=== PATIENT | male | born 1950 | race African-American/Black ===

== ENCOUNTER 2020-03-08 19:10 | Inpatient (IN) | payer MEDICARE, MEDICAID ==
[~2020-03-08] VITALS: Ht 175.3 cm; Wt 88.9 kg
[2020-03-08 18:59] VITALS: BP 154/70
[2020-03-08 19:08] LABS: BASOPHILS % (AUTO) 0.9 % (0.0-2.0); EOSINOPHILS % (AUTO) 1.9 % (0.0-3.0); HEMATOCRIT 25.5 % (42.0-52.0); LYMPHOCYTES % (AUTO) 18.4 % (20.0-45.0); MEAN CORPUSCULAR VOLUME 104 FL (80-99); MONOCYTES % (AUTO) 7.6 % (1.0-10.0); NEUTROPHILS % (AUTO) 71.1 % (45.0-75.0); PLATELET COUNT 305 K/UL (150-450); RED BLOOD COUNT 2.46 M/UL (4.70-6.10); RED CELL DISTRIBUTION WIDTH 13.1 % (11.6-14.8); WHITE BLOOD COUNT 9.1 K/UL (4.8-10.8)
[~2020-03-08 19:10] MED LIST: AMLODIPINE BESY10 MG ORAL; ATORVASTATIN CA40 MG ORAL; CALCIUM500 M3 PO; HEPARIN-D525000 UNI1 IV; HUMALOG100 UNIT/4 SUBQ; LABETALOL HCL200 MG ORAL; METOLAZONE5 MG PO; RENAGEL800 MG ORAL; bumex PO
[2020-03-08 19:11] LABS: ANION GAP 10 mmol/L (5-15); BLOOD UREA NITROGEN 44 mg/dL (7-18); CALCIUM 7.7 MG/DL (8.5-10.1); CARBON DIOXIDE 24 MMOL/L (21-32); CHLORIDE 104 MMOL/L (98-107); CREATININE 6.4 MG/DL (0.55-1.30); POTASSIUM 4.5 MMOL/L (3.5-5.1); SODIUM 138 MMOL/L (136-145)
[2020-03-08 19:16] LABS: ALANINE AMINOTRANSFERASE 22 U/L (12-78); ALBUMIN 1.9 G/DL (3.4-5.0); ALBUMIN/GLOBULIN RATIO 0.4 (1.0-2.7); ALKALINE PHOSPHATASE 81 U/L (46-116); ASPARTATE AMINO TRANSFERASE 22 U/L (15-37); BILIRUBIN,TOTAL 0.3 MG/DL (0.2-1.0)
--- NOTE | 2020-03-08 19:16 | Emergency Room Report ---
History of Present Illness General Chief Complaint: General Complaint Source: Patient, EMS, PMD - Dr. Tadeo Present Illness HPI Patient is a 69-year-old male past medical history of end-stage renal disease on dialysis who was brought in from his extended care facility by EMS due to missed dialysis. Apparently there is a transportation issue and patient has not been dialyzed in 5 days. He denies any chest pain or shortness of breath. He denies any fever or chills. He denies any abdominal pain, nausea or vomiting. Patient's primary doctor called in stating that the patient needs to be admitted for dialysis. COVID-19 Screening Contact w/high risk pt: No Experienced COVID-19 symptoms?: No COVID-19 Testing performed C PROGRAMMER: No Patient History Reviewed Nursing Documentation: PMH: Agreed; PSxH: Agreed Nursing Documentation-PM Past Medical History: No History, Except For Hx Hypertension: Yes Hx Diabetes: Yes Review of Systems All Other Systems: negative except mentioned in HPI Physical Exam Vital Signs Date Time Temp Pulse Resp B/P (MAP) Pulse Ox O2 Delivery O2 Flow Rate FiO2 03/08/20 18:29 98.2 88 20 145/78 (100) 98 Room Air Sp02 EP Interpretation: reviewed, normal General Appearance: no apparent distress, alert, GCS 15, non-toxic Head: normocephalic, atraumatic Eyes: bilateral eye normal inspection, bilateral eye PERRL ENT: hearing grossly normal, normal pharynx, no angioedema, normal voice Neck: full range of motion, supple/symm/no masses Respiratory: other Cardiovascular #1: regular rate, rhythm, no edema Gastrointestinal: normal bowel sounds, non tender, soft, non-distended, no guarding, no rebound Rectal: deferred Musculoskeletal: normal range of motion 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 Chest x-ray demonstrates increased pulmonary vasculature and on physical exam patient has bibasilar crackles. Patient will be admitted for dialysis. Laboratory Tests Test 03/08/20 18:58 White Blood Count 9.1 K/UL (4.8-10.8) Red Blood Count 2.46 M/UL (4.70-6.10) L Hemoglobin 8.0 G/DL (14.2-18.0) L Hematocrit 25.5 % (42.0-52.0) L Mean Corpuscular Volume 104 FL (80-99) H Mean Corpuscular Hemoglobin 32.3 PG (27.0-31.0) H Mean Corpuscular Hemoglobin Concent 31.2 G/DL (32.0-36.0) L Red Cell Distribution Width 13.1 % (11.6-14.8) Platelet Count 305 K/UL (150-450) Mean Platelet Volume 4.9 FL (6.5-10.1) L Neutrophils (%) (Auto) 71.1 % (45.0-75.0) Lymphocytes (%) (Auto) 18.4 % (20.0-45.0) L Monocytes (%) (Auto) 7.6 % (1.0-10.0) Eosinophils (%) (Auto) 1.9 % (0.0-3.0) Basophils (%) (Auto) 0.9 % (0.0-2.0) Prothrombin Time 10.6 SEC (9.30-11.50) Prothrombin Time INR 1.0 (0.9-1.1) Activated Partial Thromboplast Time 29 SEC (23-33) Sodium Level 138 MMOL/L (136-145) Potassium Level 4.5 MMOL/L (3.5-5.1) Chloride Level 104 MMOL/L (98-107) Carbon Dioxide Level 24 MMOL/L (21-32) Anion Gap 10 mmol/L (5-15) Blood Urea Nitrogen 44 mg/dL (7-18) H Creatinine 6.4 MG/DL (0.55-1.30) H Estimated Glomerular Filtration Rate 10.7 mL/min (>60) Glucose Level 250 MG/DL (74-106) H Calcium Level 7.7 MG/DL (8.5-10.1) L Magnesium Level 2.1 MG/DL (1.8-2.4) Total Bilirubin 0.3 MG/DL (0.2-1.0) Aspartate Amino Transferase (AST) 22 U/L (15-37) Alanine Aminotransferase (ALT) 22 U/L (12-78) Alkaline Phosphatase 81 U/L (46-116) Total Protein 6.7 G/DL (6.4-8.2) Albumin 1.9 G/DL (3.4-5.0) L Globulin 4.8 g/dL Albumin/Globulin Ratio 0.4 (1.0-2.7) L Microbiology Date/Time Source Procedure Growth Status 03/08/20 18:58 Nasopharynx SARS-CoV-2 RdRp Gene Assay - Final Complete Rhythm Strip Diag. Results Rhythm Strip Time: 19:15 EP Interpretation: yes - Kathy Meza MD Rate: 79 bpm Rhythm: NSR, no PVC's, no ectopy Chest X-Ray Diagnostic Results Chest X-Ray Diagnostic Results : Chest X-Ray Ordered: Yes # of Views/Limited/Complete: 1 View Indication: Other - missed dialysis EP Interpretation: Yes Interpretation: no consolidation, no pneumothorax, other - Increased pulmonary vasculature Impression: Other - Mild CHF Electronically Signed by: Kathy Meza MD Last Vital Signs Date Time Temp Pulse Resp B/P (MAP) Pulse Ox O2 Delivery O2 Flow Rate FiO2 03/08/20 18:59 98.2 82 19 154/70 96 Room Air Disposition: PLACE IN OBSERVATION - Medical FLoor Condition: Critical Physician Consult: Dr. Shwetha MD to admit. Currently at bedside. 8pm Kathy Meza M.D. Mar 08, 2020 19:16
[2020-03-08 21:14] VITALS: BP 153/65
[2020-03-08 22:15] VITALS: BP 158/68
--- NOTE | 2020-03-08 23:43 | History & Physical ---
History and Physical History & Physicial Pj Hernandez MD Mar 08, 2020 23:43
[2020-03-09] VITALS: BP 149/72
--- NOTE | 2020-03-09 02:59 | History and Physical Report ---
DATE OF ADMISSION: 03/08/2020 CHIEF COMPLAINT: Inability to get dialysis. HISTORY OF PRESENT ILLNESS: This is a 69-year-old gentleman with past medical history significant for end-stage renal disease on hemodialysis, history of hypertension, diabetes type 2, anemia of chronic kidney disease who presented to the hospital from [facility] after was noted patient was unable to get dialysis today. Patient's last dialysis was 5 days ago and had a transportation problem for dialysis. He denies any chest pain or shortness of breath. Denies any fever, chills, nausea, vomiting, abdominal pain, or diarrhea. Patient has no history of COVID exposure or upper respiratory symptoms. Shortly after initial evaluation in the emergency department, patient was admitted to the hospital with end-stage renal disease on hemodialysis, required dialysis done quickly. PAST MEDICAL HISTORY/PAST SURGICAL HISTORY: As above. History of hypertension, diabetes type 2, end-stage renal disease on hemodialysis, anemia of chronic kidney disease. MEDICATIONS AT HOME: Please refer to medication reconciliation. ALLERGIES: No known drug allergies. SOCIAL HISTORY: Patient is a retirement resident. No smoking, alcohol, or drugs at this time. 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 FAMILY HISTORY: Significant for diabetes and high blood pressure runs in parents. REVIEW OF SYSTEMS: Mostly as above. Denies any dysuria, frequency, or hematuria. Denies any hemoptysis or hematochezia. Denies any bright red blood per rectum. Denies any fever, chills, or loss of consciousness. Complained about weakness of lower extremities. PHYSICAL EXAMINATION: VITAL SIGNS: On admission, temperature 98.9, pulse of 88, respirations 20, blood pressure 145/78. GENERAL: Patient is awake, responsive. No acute distress. HEAD AND NECK: Pupils are reactive to light. Extraocular movements intact. Neck was supple. No JVD. LUNGS: Good air entry. No wheezing or rales. Decreased air in bases. HEART: S1, S2. Distant heart sounds. No murmur or gallop. Patient's right chest wall has PermCath. No sign of infection. No discharges. ABDOMEN: Soft, nondistended, nontender. Mildly obese. EXTREMITIES: No cyanosis, clubbing, or edema. Patient was noted to have decreased pulses in the lower extremities as well as patient has venous stasis and wrinkled skin. NEUROLOGIC: Cranial nerves II through to XII grossly intact. Patient is moving all extremities. Gait was not assessed due to patient's status. RECTAL/GENITOURINARY: Refused and deferred. PSYCHIATRIC: Mood and affect is intact. LABORATORY DATA: On admission from the emergency department, WBC of 9.1, hemoglobin 8.0, hematocrit 25, platelets is 305. Sodium 138, potassium 4.5, chloride 104, bicarb 24, BUN 44, creatinine 6.4, glucose is 250. GFR is 10.7. Hemoglobin A1c 6.7. Calcium is 7.7. AST of 22, ALT of 22. Albumin is 1.9. PT 10, INR 1.0, PTT of 29. COVID rapid test is negative. ASSESSMENT: 1. End-stage renal disease, on hemodialysis. 2. Fluid overload and inability to get dialyze. 3. Diabetes type 2. 4. Hypertension. 5. Anemia of chronic kidney disease. PLAN: Admit patient to medical floor. We will follow up with the laboratory in the morning. Consider Dr. Kevyn Vásquez consultation in the morning for dialysis order. Code status is Full code. DVT prophylaxis, heparin subcutaneous. We will follow up with blood glucose level closely and resume retirement medication. Pj Hernandez M.D. DR: AINSLEY JOB#: [id number] CC:
[2020-03-09] MEDS: NovoLOG Insulin Flexpen SUBQ SCH ×4 (06:56→21:19)
[2020-03-09] MEDS: Heparin 5000 units/ml inj SUBQ SCH ×3 (06:57→21:11)
[2020-03-09] MEDS ORDERED: Bumetanide 1mg tab ORAL SCH (08:00)
[2020-03-09 08:44] LABS: BASOPHILS % (AUTO) 0.7 % (0.0-2.0); EOSINOPHILS % (AUTO) 2.2 % (0.0-3.0); HEMATOCRIT 25.6 % (42.0-52.0); LYMPHOCYTES % (AUTO) 21.4 % (20.0-45.0); MEAN CORPUSCULAR VOLUME 103 FL (80-99); MONOCYTES % (AUTO) 7.1 % (1.0-10.0); NEUTROPHILS % (AUTO) 68.6 % (45.0-75.0); PLATELET COUNT 316 K/UL (150-450); RED CELL DISTRIBUTION WIDTH 12.3 % (11.6-14.8); WHITE BLOOD COUNT 8.8 K/UL (4.8-10.8)
[2020-03-09 08:55] VITALS: BP 143/80
[2020-03-09] MEDS: Aspirin Baby 81mg ORAL SCH (09:01)
[2020-03-09] MEDS: Losartan 25mg tab ORAL SCH (09:02)
[2020-03-09] MEDS: Nephrovite tab (Rena-Vite) ORAL SCH (09:02)
[2020-03-09 09:08] LABS: PHOSPHORUS 4.3 MG/DL (2.5-4.9)
[2020-03-09 09:22] LABS: ANION GAP 11 mmol/L (5-15); BLOOD UREA NITROGEN 49 mg/dL (7-18); CALCIUM 7.8 MG/DL (8.5-10.1); CARBON DIOXIDE 22 MMOL/L (21-32); CHLORIDE 104 MMOL/L (98-107); CREATININE 6.4 MG/DL (0.55-1.30); POTASSIUM 4.2 MMOL/L (3.5-5.1); SODIUM 137 MMOL/L (136-145)
[2020-03-09 09:25] LABS: % IRON SATURATION 23 % (15-50); IRON 32 ug/dL (50-175); TOTAL IRON BINDING CAPACITY 139 ug/dL (250-450)
[2020-03-09 09:36] LABS: ALANINE AMINOTRANSFERASE 26 U/L (12-78); ALBUMIN 1.7 G/DL (3.4-5.0); ALBUMIN/GLOBULIN RATIO 0.4 (1.0-2.7); ALKALINE PHOSPHATASE 61 U/L (46-116); BILIRUBIN,TOTAL 0.2 MG/DL (0.2-1.0); FERRITIN 413 NG/ML (8-388)
[2020-03-09 09:44] LABS: ASPARTATE AMINO TRANSFERASE 21 U/L (15-37)
[2020-03-09 11:55] VITALS: BP 140/81
--- NOTE | 2020-03-09 12:14 | Consultation ---
Consult Note Consult Note I am asked to evaluate this patient at the request of Dr. singh for dialysis management. Patient seen in room 310. Discussed with RN. Patient is a 69-year-old male past medical history of end-stage renal disease on dialysis who was brought in from his extended care facility by EMS due to missed dialysis. Apparently there is a transportation issue and patient has not been dialyzed in 5 days. He denies any chest pain or shortness of breath. He denies any fever or chills. He denies any abdominal pain, nausea or vomiting. Patient's primary doctor called in stating that the patient needs to be admitted for dialysis. COVID-19 Screening Contact w/high risk pt: No Experienced COVID-19 symptoms?: No COVID-19 Testing performed BOBBIN WINDER TENDER: No Past Medical History: No History, Except For: End-stage renal disease Hx Hypertension: Yes Hx Diabetes: Yes Patient interviewed and examined. Laboratory data reviewed. VITAL SIGNS: On admission, temperature 98.9, pulse of 88, respirations 20, blood pressure 145/78. Patient is awake, responsive. No acute distress. HEAD AND NECK: Pupils are reactive to light. Extraocular movements intact. Neck was supple. No JVD. LUNGS: Good air entry. No wheezing or rales. Decreased air in bases. HEART: S1, S2. Distant heart sounds. No murmur or gallop. Patient's right chest wall has PermCath. No sign of infection. No discharges. ABDOMEN: Soft, nondistended, nontender. Mildly obese. EXTREMITIES: No cyanosis, clubbing, or edema. Patient was noted to have decreased pulses in the lower extremities as well as patient has venous stasis and wrinkled skin. NEUROLOGIC: Cranial nerves II through to XII grossly intact. Patient is moving all extremities. Gait was not assessed due to patient's status. . Assessment/Plan End-stage renal disease Anemia of chronic kidney disease Diabetes mellitus Volume overload Hemodialysis today Keep the blood pressure and blood sugar in check Flomax nightly Parameters for blood pressure medications Epogen subcu for anemia Per orders Kevyn Vásquez MD Mar 09, 2020 12:14
--- NOTE | 2020-03-09 12:55 | Consultation ---
History of Present Illness General Date patient seen: Mar 09, 2020 Chief Complaint: General Complaint Reason for Consultation: inpatient management Present Illness HPI 69 year old male with hx of ESRF on HD , dm, HTH, DM, [place] [facility] [place] cuased by lack of HD for the past 5 days. Pt is admitted for further treatment. Allergies: Coded Allergies: No Known Allergies (Unverified , 03/08/20) Medication History Scheduled Amlodipine Besylate* (Amlodipine Besylate*), 10 MG ORAL DAILY, (Reported) Atorvastatin Calcium* (Atorvastatin Calcium*), 80 MG ORAL BEDTIME, (Reported) Labetalol Hcl* (Normodyne*), 200 MG ORAL EVERY 12 HOURS, (Reported) Sevelamer Hcl (Renagel), 800 MG ORAL THREE TIMES A DAY, (Reported) [bumex], 2 MG PO BID, (Reported) Miscellaneous Medications Calcium Carbonate (Calcium), 500 MG PO, (Reported) Heparin Sod/Dextrose* (Heparin-D5w 25,000 Unit/500 Ml*), 5,000 UNIT IV, ( Reported) Insulin Lispro (Humalog), 200 SUBQ, (Reported) Metolazone (Metolazone), 5 MG PO, (Reported) Patient History Healthcare decision maker Resuscitation status Advanced Directive on File Past Medical/Surgical History Past Medical/Surgical History: (1) History of diabetes mellitus (2) History of hypertension (3) ESRF (end stage renal failure) (4) Lack of access to transportation Review of Systems All Other Systems: negative except mentioned in HPI Physical Exam General Appearance: WD/WN, no apparent distress Lines, tubes and drains: peripheral, central line HEENT: normocephalic, atraumatic Neck: non-tender, normal alignment Respiratory/Chest: chest wall non-tender, lungs clear Breasts: no masses Cardiovascular/Chest: normal peripheral pulses, normal rate Abdomen: normal bowel sounds Extremities: normal range of motion Last 24 Hour Vital Signs Date Time Temp Pulse Resp B/P (MAP) Pulse Ox O2 Delivery O2 Flow Rate FiO2 03/09/20 11:55 98.2 77 18 140/81 (100) 98 03/09/20 09:02 143/80 03/09/20 09:02 84 143/80 03/09/20 08:55 98.2 84 20 143/80 (101) 98 03/09/20 00:00 98.2 82 20 149/72 (97) 97 03/08/20 22:59 Room Air 03/08/20 22:15 98.3 92 18 158/68 (98) 98 03/08/20 22:10 98.2 91 26 153/65 99 Room Air 03/08/20 21:14 98.2 91 26 153/65 99 Room Air 03/08/20 18:59 98.2 82 19 154/70 96 Room Air 03/08/20 18:59 81 20 Room Air 03/08/20 18:29 98.2 88 20 145/78 (100) 98 Room Air Laboratory Tests Test 03/08/20 18:58 03/09/20 06:51 03/09/20 07:55 03/09/20 11:51 White Blood Count 9.1 K/UL (4.8-10.8) 8.8 K/UL (4.8-10.8) Red Blood Count 2.46 M/UL (4.70-6.10) L 2.50 M/UL (4.70-6.10) L Hemoglobin 8.0 G/DL (14.2-18.0) L 8.0 G/DL (14.2-18.0) L Hematocrit 25.5 % (42.0-52.0) L 25.6 % (42.0-52.0) L Mean Corpuscular Volume 104 FL (80-99) H 103 FL (80-99) H Mean Corpuscular Hemoglobin 32.3 PG (27.0-31.0) H 32.1 PG (27.0-31.0) H Mean Corpuscular Hemoglobin Concent 31.2 G/DL (32.0-36.0) L 31.3 G/DL (32.0-36.0) L Red Cell Distribution Width 13.1 % (11.6-14.8) 12.3 % (11.6-14.8) Platelet Count 305 K/UL (150-450) 316 K/UL (150-450) Mean Platelet Volume 4.9 FL (6.5-10.1) L 5.1 FL (6.5-10.1) L Neutrophils (%) (Auto) 71.1 % (45.0-75.0) 68.6 % (45.0-75.0) Lymphocytes (%) (Auto) 18.4 % (20.0-45.0) L 21.4 % (20.0-45.0) Monocytes (%) (Auto) 7.6 % (1.0-10.0) 7.1 % (1.0-10.0) Eosinophils (%) (Auto) 1.9 % (0.0-3.0) 2.2 % (0.0-3.0) Basophils (%) (Auto) 0.9 % (0.0-2.0) 0.7 % (0.0-2.0) Prothrombin Time 10.6 SEC (9.30-11.50) Prothromb Time International Ratio 1.0 (0.9-1.1) Activated Partial Thromboplast Time 29 SEC (23-33) Sodium Level 138 MMOL/L (136-145) 137 MMOL/L (136-145) Potassium Level 4.5 MMOL/L (3.5-5.1) 4.2 MMOL/L (3.5-5.1) Chloride Level 104 MMOL/L (98-107) 104 MMOL/L (98-107) Carbon Dioxide Level 24 MMOL/L (21-32) 22 MMOL/L (21-32) Anion Gap 10 mmol/L (5-15) 11 mmol/L (5-15) Blood Urea Nitrogen 44 mg/dL (7-18) H 49 mg/dL (7-18) H Creatinine 6.4 MG/DL (0.55-1.30) H 6.4 MG/DL (0.55-1.30) H Estimat Glomerular Filtration Rate 10.7 mL/min (>60) 10.7 mL/min (>60) Glucose Level 250 MG/DL (74-106) H 185 MG/DL (74-106) H Hemoglobin A1c 6.7 % (4.3-6.0) H Calcium Level 7.7 MG/DL (8.5-10.1) L 7.8 MG/DL (8.5-10.1) L Magnesium Level 2.1 MG/DL (1.8-2.4) 2.0 MG/DL (1.8-2.4) Total Bilirubin 0.3 MG/DL (0.2-1.0) 0.2 MG/DL (0.2-1.0) Aspartate Amino Transf (AST/SGOT) 22 U/L (15-37) 21 U/L (15-37) Alanine Aminotransferase (ALT/SGPT) 22 U/L (12-78) 26 U/L (12-78) Alkaline Phosphatase 81 U/L (46-116) 61 U/L (46-116) Total Protein 6.7 G/DL (6.4-8.2) 6.3 G/DL (6.4-8.2) L Albumin 1.9 G/DL (3.4-5.0) L 1.7 G/DL (3.4-5.0) L Globulin 4.8 g/dL 4.6 g/dL Albumin/Globulin Ratio 0.4 (1.0-2.7) L 0.4 (1.0-2.7) L POC Whole Blood Glucose 183 MG/DL (74-106) H 136 MG/DL (74-106) H Phosphorus Level 4.3 MG/DL (2.5-4.9) Iron Level 32 ug/dL (50-175) L Total Iron Binding Capacity 139 ug/dL (250-450) L Percent Iron Saturation 23 % (15-50) Unsaturated Iron Binding 107 ug/dL (112-346) L Ferritin 413 NG/ML (8-388) H Vitamin B12 Level 791 PG/ML (193-986) Folate 8.7 NG/ML (8.6-58.9) Microbiology Date/Time Source Procedure Growth Status 03/08/20 18:58 Nasopharynx SARS-CoV-2 RdRp Gene Assay - Final Complete Height (Feet): 5 Height (Inches): 9.00 Weight (Pounds): 200 Medications Current Medications Medications (Trade) Dose Ordered Sig/Analilia Route PRN Reason Start Time Stop Time Status Last Admin Dose Admin Amlodipine Besylate (Norvasc) 10 mg DAILY ORAL 03/09/20 09:00 04/08/20 08:59 03/09/20 09:02 Artificial Tears (Akwa-Tears) 1 drop THREE TIMES A DAY BOTH EYES 03/09/20 09:00 04/08/20 08:59 03/09/20 09:03 Aspirin (ASA) 81 mg DAILY ORAL 03/09/20 09:00 04/23/20 08:59 03/09/20 09:01 Atorvastatin Calcium (Lipitor) 80 mg BEDTIME ORAL 03/09/20 21:00 06/07/20 20:59 Dextrose (Dextrose 50%) 25 ml Q30M PRN IV Hypoglycemia 03/08/20 23:00 06/06/20 22:59 Dextrose (Dextrose 50%) 50 ml Q30M PRN IV Hypoglycemia 03/08/20 23:00 06/06/20 22:59 Docusate Sodium (Colace) 100 mg THREE TIMES A DAY ORAL 03/09/20 13:00 04/08/20 12:59 Epoetin Dragan (Epoetin Dragan(ESRD on dialysis)) 10,000 unit FRI- SUBQ 03/10/20 21:00 06/08/20 20:59 Ergocalciferol (Drisdol) 50,000 intlu ONCE A WEEK ORAL 03/12/20 09:00 04/11/20 08:59 Ferrous Sulfate (Feosol) 325 mg THREE TIMES A DAY ORAL 03/09/20 09:00 06/07/20 08:59 03/09/20 09:02 Heparin Sodium (Porcine) (Heparin 5000 units/ml) 5,000 units EVERY 8 HOURS SUBQ 03/09/20 06:00 04/23/20 05:59 03/09/20 06:57 Insulin Aspart (NovoLOG) BEFORE MEALS AND HS SUBQ 03/09/20 06:30 06/07/20 06:29 03/09/20 06:56 Losartan Potassium (Cozaar) 25 mg DAILY ORAL 03/09/20 09:00 04/08/20 08:59 03/09/20 09:02 Pantoprazole (Protonix) 40 mg EVERY 12 HOURS ORAL 03/09/20 21:00 04/08/20 20:59 Sevelamer Carbonate (Renvela) 800 mg THREE TIMES A DAY ORAL 03/09/20 09:00 06/07/20 08:59 03/09/20 09:02 Tamsulosin HCl (Flomax) 0.4 mg BEDTIME ORAL 03/09/20 21:00 04/08/20 20:59 Vitamin B Complex/ Vit C/Folic Acid (Nephrovite) 1 tab DAILY ORAL 03/09/20 09:00 04/08/20 08:59 03/09/20 09:02 Assessment/Plan Problem List: (1) Fluid overload ICD Codes: E87.70 - Fluid overload, unspecified SNOMED: 45795865 (2) Missed dialysis SNOMED: 737721209 (3) Lack of access to transportation ICD Codes: Z91.89 - Other specified personal risk factors, not elsewhere classified SNOMED: 598224583 (4) ESRF (end stage renal failure) ICD Codes: N18.6 - End stage renal disease SNOMED: 09248158 (5) History of hypertension ICD Codes: Z86.79 - Personal history of other diseases of the circulatory system SNOMED: 292875791 (6) History of diabetes mellitus ICD Codes: Z86.39 - Personal history of other endocrine, nutritional and metabolic disease SNOMED: 942265401 Assessment/Plan: HD today social service consult symptomatic treatment sliding scale diabetic diet monitor Bp Gabriel Ceja MD Mar 09, 2020 12:55
[2020-03-09] MEDS: Docusate 100mg cap ORAL SCH ×2 (13:00→17:07)
--- NOTE | 2020-03-09 13:15 | Diagnostic Imaging Report ---
Indication: Chest pain Technique: One view of the chest Comparison: none Findings: Heart size is normal. There is an opacity at the right lung base. Uncertain as to whether this represents infiltrate or an overlapping shadow. There is blunting of the left costophrenic sulcus. The upper lungs are clear. There is a tunneled dialysis catheter Impression: Possible right basilar infiltrate Small left pleural effusion
[2020-03-09 16:00] VITALS: BP 138/78
--- NOTE | 2020-03-09 19:36 | Internal Med Progress Note ---
Subjective Date of Service: Mar 09, 2020 Physician Name Ted Worthington Attending Physician Pj Hernandez MD Current Medications Medications (Trade) Dose Ordered Sig/Analilia Route PRN Reason Start Time Stop Time Status Last Admin Dose Admin Amlodipine Besylate (Norvasc) 10 mg DAILY ORAL 03/09/20 09:00 04/08/20 08:59 03/09/20 09:02 Artificial Tears (Akwa-Tears) 1 drop THREE TIMES A DAY BOTH EYES 03/09/20 09:00 04/08/20 08:59 03/09/20 17:06 Aspirin (ASA) 81 mg DAILY ORAL 03/09/20 09:00 04/23/20 08:59 03/09/20 09:01 Atorvastatin Calcium (Lipitor) 80 mg BEDTIME ORAL 03/09/20 21:00 06/07/20 20:59 Dextrose (Dextrose 50%) 25 ml Q30M PRN IV Hypoglycemia 03/08/20 23:00 06/06/20 22:59 Dextrose (Dextrose 50%) 50 ml Q30M PRN IV Hypoglycemia 03/08/20 23:00 06/06/20 22:59 Docusate Sodium (Colace) 100 mg THREE TIMES A DAY ORAL 03/09/20 13:00 04/08/20 12:59 Epoetin Dragan (Epoetin Dragan(ESRD on dialysis)) 10,000 unit FRI-FRI-FRI SUBQ 03/10/20 21:00 06/08/20 20:59 Ergocalciferol (Drisdol) 50,000 intlu ONCE A WEEK ORAL 03/12/20 09:00 04/11/20 08:59 Ferrous Sulfate (Feosol) 325 mg THREE TIMES A DAY ORAL 03/09/20 09:00 06/07/20 08:59 03/09/20 17:07 Heparin Sodium (Porcine) (Heparin 5000 units/ml) 5,000 units EVERY 8 HOURS SUBQ 03/09/20 06:00 04/23/20 05:59 03/09/20 13:43 Insulin Aspart (NovoLOG) BEFORE MEALS AND HS SUBQ 03/09/20 06:30 06/07/20 06:29 03/09/20 17:06 Losartan Potassium (Cozaar) 25 mg DAILY ORAL 03/09/20 09:00 04/08/20 08:59 03/09/20 09:02 Pantoprazole (Protonix) 40 mg EVERY 12 HOURS ORAL 03/09/20 21:00 04/08/20 20:59 Sevelamer Carbonate (Renvela) 800 mg THREE TIMES A DAY ORAL 03/09/20 09:00 06/07/20 08:59 03/09/20 17:07 Tamsulosin HCl (Flomax) 0.4 mg BEDTIME ORAL 03/09/20 21:00 04/08/20 20:59 Vitamin B Complex/ Vit C/Folic Acid (Nephrovite) 1 tab DAILY ORAL 03/09/20 09:00 04/08/20 08:59 03/09/20 09:02 Allergies: Coded Allergies: No Known Allergies (Unverified , 03/08/20) ROS Limited/Unobtainable: No Constitutional: Reports: no symptoms HEENT: Reports: no symptoms Cardiovascular: Reports: no symptoms Respiratory: Reports: no symptoms Gastrointestinal/Abdominal: Reports: no symptoms Genitourinary: Reports: no symptoms Neurologic/Psychiatric: Reports: no symptoms Subjective 69 YO M with history of end stage renal failure, admitted for missed dialysis. Cover for Int Nic-Dr Hernandez Objective Last Vital Signs Date Time Temp Pulse Resp B/P (MAP) Pulse Ox O2 Delivery O2 Flow Rate FiO2 03/09/20 16:00 98.3 86 18 138/78 (98) 100 03/09/20 09:00 Room Air Laboratory Tests Test 03/09/20 06:51 03/09/20 07:55 03/09/20 11:51 POC Whole Blood Glucose 183 MG/DL (74-106) H 136 MG/DL (74-106) H White Blood Count 8.8 K/UL (4.8-10.8) Red Blood Count 2.50 M/UL (4.70-6.10) L Hemoglobin 8.0 G/DL (14.2-18.0) L Hematocrit 25.6 % (42.0-52.0) L Mean Corpuscular Volume 103 FL (80-99) H Mean Corpuscular Hemoglobin 32.1 PG (27.0-31.0) H Mean Corpuscular Hemoglobin Concent 31.3 G/DL (32.0-36.0) L Red Cell Distribution Width 12.3 % (11.6-14.8) Platelet Count 316 K/UL (150-450) Mean Platelet Volume 5.1 FL (6.5-10.1) L Neutrophils (%) (Auto) 68.6 % (45.0-75.0) Lymphocytes (%) (Auto) 21.4 % (20.0-45.0) Monocytes (%) (Auto) 7.1 % (1.0-10.0) Eosinophils (%) (Auto) 2.2 % (0.0-3.0) Basophils (%) (Auto) 0.7 % (0.0-2.0) Sodium Level 137 MMOL/L (136-145) Potassium Level 4.2 MMOL/L (3.5-5.1) Chloride Level 104 MMOL/L (98-107) Carbon Dioxide Level 22 MMOL/L (21-32) Anion Gap 11 mmol/L (5-15) Blood Urea Nitrogen 49 mg/dL (7-18) H Creatinine 6.4 MG/DL (0.55-1.30) H Estimat Glomerular Filtration Rate 10.7 mL/min (>60) Glucose Level 185 MG/DL (74-106) H Calcium Level 7.8 MG/DL (8.5-10.1) L Phosphorus Level 4.3 MG/DL (2.5-4.9) Magnesium Level 2.0 MG/DL (1.8-2.4) Iron Level 32 ug/dL (50-175) L Total Iron Binding Capacity 139 ug/dL (250-450) L Percent Iron Saturation 23 % (15-50) Unsaturated Iron Binding 107 ug/dL (112-346) L Ferritin 413 NG/ML (8-388) H Total Bilirubin 0.2 MG/DL (0.2-1.0) Aspartate Amino Transf (AST/SGOT) 21 U/L (15-37) Alanine Aminotransferase (ALT/SGPT) 26 U/L (12-78) Alkaline Phosphatase 61 U/L (46-116) Total Protein 6.3 G/DL (6.4-8.2) L Albumin 1.7 G/DL (3.4-5.0) L Globulin 4.6 g/dL Albumin/Globulin Ratio 0.4 (1.0-2.7) L Vitamin B12 Level 791 PG/ML (193-986) Folate 8.7 NG/ML (8.6-58.9) Microbiology Date/Time Source Procedure Growth Status 03/08/20 18:58 Nasopharynx SARS-CoV-2 RdRp Gene Assay - Final Complete Objective PHYSICAL EXAMINATION: GENERAL: Patient is awake, responsive. No acute distress. HEAD AND NECK: Pupils are reactive to light. Extraocular movements intact. Neck was supple. No JVD. LUNGS: Good air entry. No wheezing or rales. Decreased air in bases. HEART: S1, S2. Distant heart sounds. No murmur or gallop. Patient's right chest wall has PermCath. No sign of infection. No discharges. ABDOMEN: Soft, nondistended, nontender. Mildly obese. EXTREMITIES: No cyanosis, clubbing, or edema. Patient was noted to have decreased pulses in the lower extremities as well as patient has venous stasis and wrinkled skin. NEUROLOGIC: Cranial nerves II through to XII grossly intact. Patient is moving all extremities. Gait was not assessed due to patient's status. RECTAL/GENITOURINARY: Refused and deferred. PSYCHIATRIC: Mood and affect is intact. Assessment/Plan Assessment/Plan ASSESSMENT: 1. End-stage renal disease, on hemodialysis. 2. Fluid overload and inability to get dialyze. 3. Diabetes type 2. 4. Hypertension. 5. Anemia of chronic kidney disease. PLAN: 1. Admit patient to medical floor. 2. Dr. Kevyn Vásquez = nephrology consultation; hemodialysis 03/09/20 3. Code status is Full code. 4. DVT prophylaxis=heparin subcutaneous. Ted Worthington MD Mar 09, 2020 19:36
[2020-03-09 20:00] VITALS: BP 140/80
[2020-03-09] MEDS: Atorvastatin 80mg tab ORAL SCH (21:09)
[2020-03-09] MEDS: Tamsulosin 0.4mg cap ORAL SCH (21:10)
[2020-03-10] VITALS: BP 149/80
[2020-03-10 04:00] VITALS: BP 143/73
[2020-03-10] MEDS: Heparin 5000 units/ml inj SUBQ SCH ×3 (05:37→21:13)
[2020-03-10] MEDS: NovoLOG Insulin Flexpen SUBQ SCH ×4 (05:37→21:23)
[2020-03-10 08:00] VITALS: BP 132/77
[2020-03-10] MEDS: Docusate 100mg cap ORAL SCH ×3 (08:23→17:02)
[2020-03-10] MEDS: Nephrovite tab (Rena-Vite) ORAL SCH (08:23)
[2020-03-10] MEDS: Aspirin Baby 81mg ORAL SCH (08:23)
[2020-03-10] MEDS: Losartan 25mg tab ORAL SCH (08:24)
--- NOTE | 2020-03-10 10:44 | Nephrology Progress Note ---
Assessment/Plan Problem List: (1) ESRD (end stage renal disease) on dialysis (2) Missed dialysis (3) History of hypertension (4) Fluid overload (5) Anemia in chronic kidney disease (CKD) Assessment End-stage renal disease Anemia of chronic kidney disease Diabetes mellitus Volume overload Plan March 10: Hemodialysis today, since dialysis was not done yesterday due to mechanical reasons with the dialysis vendor. Discussed with RN. Today's lab pending will be drawn prior to dialysis by dialysis nurse. Keep the blood pressure and blood sugar in check Flomax nightly Parameters for blood pressure medications Epogen subcu for anemia Per orders Subjective ROS Limited/Unobtainable: No Constitutional: Reports: malaise Objective Objective Last 24 Hour Vital Signs Date Time Temp Pulse Resp B/P (MAP) Pulse Ox O2 Delivery O2 Flow Rate FiO2 03/10/20 09:00 Room Air 03/10/20 08:00 98.0 100 18 132/77 (95) 97 03/10/20 04:00 98.0 82 18 143/73 (96) 98 03/10/20 00:00 97.5 82 18 149/80 (103) 98 03/09/20 21:00 Room Air 03/09/20 20:00 98.5 86 18 140/80 (100) 100 03/09/20 16:00 98.3 86 18 138/78 (98) 100 03/09/20 11:55 98.2 77 18 140/81 (100) 98 Intake and Output 03/09/20 03/10/20 19:00 07:00 Intake Total 500 ml 240 ml Balance 500 ml 240 ml Intake Oral 500 ml 240 ml # Voids 1 # Bowel Movements 1 1 Patient refused blood draw today laboratory Tests 03/09/20 11:51: POC Whole Blood Glucose 136H 03/09/20 17:03: POC Whole Blood Glucose 252H 03/09/20 21:17: POC Whole Blood Glucose [Pending] 03/10/20 05:07: POC Whole Blood Glucose 155H Height (Feet): 5 Height (Inches): 9.00 Weight (Pounds): 203 General Appearance: no apparent distress Cardiovascular: tachycardia Respiratory/Chest: decreased breath sounds Abdomen: soft Kevyn Vásquez MD Mar 10, 2020 10:44
[2020-03-10 12:00] VITALS: BP 135/70
--- NOTE | 2020-03-10 14:20 | Pulmonology Progress Note ---
Subjective ROS Limited/Unobtainable: No Constitutional: Reports: no symptoms HEENT: Repors: no symptoms Allergies: Coded Allergies: No Known Allergies (Unverified , 03/08/20) Objective Last 24 Hour Vital Signs Date Time Temp Pulse Resp B/P (MAP) Pulse Ox O2 Delivery O2 Flow Rate FiO2 03/10/20 09:00 Room Air 03/10/20 08:00 98.0 100 18 132/77 (95) 97 03/10/20 04:00 98.0 82 18 143/73 (96) 98 03/10/20 00:00 97.5 82 18 149/80 (103) 98 03/09/20 21:00 Room Air 03/09/20 20:00 98.5 86 18 140/80 (100) 100 03/09/20 16:00 98.3 86 18 138/78 (98) 100 Intake and Output 03/09/20 03/10/20 19:00 07:00 Intake Total 500 ml 240 ml Balance 500 ml 240 ml Intake Oral 500 ml 240 ml # Voids 1 # Bowel Movements 1 1 General Appearance: WD/WN HEENT: normocephalic, anicteric Respiratory: chest wall non-tender, lungs clear Cardiovascular: normal peripheral pulses, normal rate, regular rhythm Abdomen: normal bowel sounds, soft, non tender Genitourinary: normal external genitalia Extremities: no clubbing Skin: no rash, no lesions Microbiology Date/Time Source Procedure Growth Status 03/08/20 18:58 Nasopharynx SARS-CoV-2 RdRp Gene Assay - Final Complete Laboratory Tests 03/09/20 17:03: POC Whole Blood Glucose 252H 03/09/20 21:17: POC Whole Blood Glucose [Pending] 03/10/20 05:07: POC Whole Blood Glucose 155H 03/10/20 11:47: POC Whole Blood Glucose 186H Current Medications Medications (Trade) Dose Ordered Sig/Analilia Route PRN Reason Start Time Stop Time Status Last Admin Dose Admin Amlodipine Besylate (Norvasc) 10 mg DAILY ORAL 03/09/20 09:00 04/08/20 08:59 03/09/20 09:02 Artificial Tears (Akwa-Tears) 1 drop THREE TIMES A DAY BOTH EYES 03/09/20 09:00 04/08/20 08:59 03/10/20 12:50 Aspirin (ASA) 81 mg DAILY ORAL 03/09/20 09:00 04/23/20 08:59 03/09/20 09:01 Atorvastatin Calcium (Lipitor) 80 mg BEDTIME ORAL 03/09/20 21:00 06/07/20 20:59 03/09/20 21:09 Dextrose (Dextrose 50%) 25 ml Q30M PRN IV Hypoglycemia 03/08/20 23:00 06/06/20 22:59 Dextrose (Dextrose 50%) 50 ml Q30M PRN IV Hypoglycemia 03/08/20 23:00 06/06/20 22:59 Docusate Sodium (Colace) 100 mg THREE TIMES A DAY ORAL 03/09/20 13:00 04/08/20 12:59 03/10/20 12:50 Epoetin Dragan (Epoetin Dragan(ESRD on dialysis)) 10,000 unit FRI-FRI-FRI SUBQ 03/10/20 21:00 06/08/20 20:59 Ergocalciferol (Drisdol) 50,000 intlu ONCE A WEEK ORAL 03/12/20 09:00 04/11/20 08:59 Ferrous Sulfate (Feosol) 325 mg THREE TIMES A DAY ORAL 03/09/20 09:00 06/07/20 08:59 03/10/20 12:50 Heparin Sodium (Porcine) (Heparin 5000 units/ml) 5,000 units EVERY 8 HOURS SUBQ 03/09/20 06:00 04/23/20 05:59 03/10/20 05:37 Insulin Aspart (NovoLOG) BEFORE MEALS AND HS SUBQ 03/09/20 06:30 06/07/20 06:29 03/10/20 11:30 Losartan Potassium (Cozaar) 25 mg DAILY ORAL 03/09/20 09:00 04/08/20 08:59 03/09/20 09:02 Pantoprazole (Protonix) 40 mg EVERY 12 HOURS ORAL 03/09/20 21:00 04/08/20 20:59 03/10/20 08:23 Sevelamer Carbonate (Renvela) 800 mg THREE TIMES A DAY ORAL 03/09/20 09:00 06/07/20 08:59 03/10/20 12:50 Tamsulosin HCl (Flomax) 0.4 mg BEDTIME ORAL 03/09/20 21:00 04/08/20 20:59 03/09/20 21:10 Vitamin B Complex/ Vit C/Folic Acid (Nephrovite) 1 tab DAILY ORAL 03/09/20 09:00 04/08/20 08:59 03/10/20 08:23 Assessment/Plan Problems: (1) Fluid overload (2) Missed dialysis (3) Lack of access to transportation (4) ESRF (end stage renal failure) (5) History of hypertension (6) History of diabetes mellitus Assessment/Plan HD today AGAIN. social service consult symptomatic treatment sliding scale diabetic diet monitor Bp Gabriel Ceja MD Mar 10, 2020 14:20
[2020-03-10 16:00] VITALS: BP 148/73
[2020-03-10 17:08] LABS: ANION GAP 8 mmol/L (5-15); BLOOD UREA NITROGEN 55 mg/dL (7-18); CALCIUM 7.2 MG/DL (8.5-10.1); CARBON DIOXIDE 26 MMOL/L (21-32); CHLORIDE 106 MMOL/L (98-107); CREATININE 6.8 MG/DL (0.55-1.30); HEMATOCRIT 23.5 % (42.0-52.0); HEMOGLOBIN 7.3 G/DL (14.2-18.0); MEAN CORPUSCULAR VOLUME 103 FL (80-99); PLATELET COUNT 315 K/UL (150-450); POTASSIUM 4.2 MMOL/L (3.5-5.1); RED BLOOD COUNT 2.29 M/UL (4.70-6.10); RED CELL DISTRIBUTION WIDTH 13.1 % (11.6-14.8); SODIUM 140 MMOL/L (136-145); WHITE BLOOD COUNT 8.7 K/UL (4.8-10.8)
--- NOTE | 2020-03-10 19:56 | Internal Med Progress Note ---
Subjective Physician Name Pj Hernandez Attending Physician Pj Hernandez MD Current Medications Medications (Trade) Dose Ordered Sig/Analilia Route PRN Reason Start Time Stop Time Status Last Admin Dose Admin Amlodipine Besylate (Norvasc) 10 mg DAILY ORAL 03/09/20 09:00 04/08/20 08:59 03/09/20 09:02 Artificial Tears (Akwa-Tears) 1 drop THREE TIMES A DAY BOTH EYES 03/09/20 09:00 04/08/20 08:59 03/10/20 17:03 Aspirin (ASA) 81 mg DAILY ORAL 03/09/20 09:00 04/23/20 08:59 03/09/20 09:01 Atorvastatin Calcium (Lipitor) 80 mg BEDTIME ORAL 03/09/20 21:00 06/07/20 20:59 03/09/20 21:09 Dextrose (Dextrose 50%) 25 ml Q30M PRN IV Hypoglycemia 03/08/20 23:00 06/06/20 22:59 Dextrose (Dextrose 50%) 50 ml Q30M PRN IV Hypoglycemia 03/08/20 23:00 06/06/20 22:59 Docusate Sodium (Colace) 100 mg THREE TIMES A DAY ORAL 03/09/20 13:00 04/08/20 12:59 03/10/20 17:02 Epoetin Dragan (Epoetin Dragan(ESRD on dialysis)) 10,000 unit FRI-FRI-FRI SUBQ 03/10/20 21:00 06/08/20 20:59 Ergocalciferol (Drisdol) 50,000 intlu ONCE A WEEK ORAL 03/12/20 09:00 04/11/20 08:59 Ferrous Sulfate (Feosol) 325 mg THREE TIMES A DAY ORAL 03/09/20 09:00 06/07/20 08:59 03/10/20 17:02 Heparin Sodium (Porcine) (Heparin 5000 units/ml) 5,000 units EVERY 8 HOURS SUBQ 03/09/20 06:00 04/23/20 05:59 03/10/20 05:37 Insulin Aspart (NovoLOG) BEFORE MEALS AND HS SUBQ 03/09/20 06:30 06/07/20 06:29 03/10/20 17:00 Losartan Potassium (Cozaar) 25 mg DAILY ORAL 03/09/20 09:00 04/08/20 08:59 03/09/20 09:02 Pantoprazole (Protonix) 40 mg EVERY 12 HOURS ORAL 03/09/20 21:00 04/08/20 20:59 03/10/20 08:23 Sevelamer Carbonate (Renvela) 800 mg THREE TIMES A DAY ORAL 03/09/20 09:00 06/07/20 08:59 03/10/20 18:24 Tamsulosin HCl (Flomax) 0.4 mg BEDTIME ORAL 03/09/20 21:00 04/08/20 20:59 03/09/20 21:10 Vitamin B Complex/ Vit C/Folic Acid (Nephrovite) 1 tab DAILY ORAL 03/09/20 09:00 04/08/20 08:59 03/10/20 08:23 Allergies: Coded Allergies: No Known Allergies (Unverified , 03/08/20) Subjective awake, alert, responsive, denies any chest pain or shortness of breath. Objective Last Vital Signs Date Time Temp Pulse Resp B/P (MAP) Pulse Ox O2 Delivery O2 Flow Rate FiO2 03/10/20 16:00 97.9 71 18 148/73 (98) 95 03/10/20 09:00 Room Air Laboratory Tests Test 03/09/20 21:17 03/10/20 05:07 03/10/20 11:47 03/10/20 14:45 POC Whole Blood Glucose Pending 155 MG/DL (74-106) H 186 MG/DL (74-106) H White Blood Count 8.7 K/UL (4.8-10.8) Red Blood Count 2.29 M/UL (4.70-6.10) L Hemoglobin 7.3 G/DL (14.2-18.0) L Hematocrit 23.5 % (42.0-52.0) L Mean Corpuscular Volume 103 FL (80-99) H Mean Corpuscular Hemoglobin 32.1 PG (27.0-31.0) H Mean Corpuscular Hemoglobin Concent 31.3 G/DL (32.0-36.0) L Red Cell Distribution Width 13.1 % (11.6-14.8) Platelet Count 315 K/UL (150-450) Mean Platelet Volume 5.3 FL (6.5-10.1) L Neutrophils (%) (Auto) % (45.0-75.0) Lymphocytes (%) (Auto) % (20.0-45.0) Monocytes (%) (Auto) % (1.0-10.0) Eosinophils (%) (Auto) % (0.0-3.0) Basophils (%) (Auto) % (0.0-2.0) Neutrophils % (Manual) Pending Lymphocytes % (Manual) Pending Platelet Estimate Pending Platelet Morphology Pending Sodium Level 140 MMOL/L (136-145) Potassium Level 4.2 MMOL/L (3.5-5.1) Chloride Level 106 MMOL/L (98-107) Carbon Dioxide Level 26 MMOL/L (21-32) Anion Gap 8 mmol/L (5-15) Blood Urea Nitrogen 55 mg/dL (7-18) H Creatinine 6.8 MG/DL (0.55-1.30) H Estimat Glomerular Filtration Rate 9.9 mL/min (>60) Glucose Level 243 MG/DL (74-106) H Calcium Level 7.2 MG/DL (8.5-10.1) L Test 03/10/20 16:40 POC Whole Blood Glucose Pending Microbiology Date/Time Source Procedure Growth Status 03/08/20 18:58 Nasopharynx SARS-CoV-2 RdRp Gene Assay - Final Complete Intake and Output 03/09/20 03/10/20 19:00 07:00 Intake Total 500 ml 240 ml Balance 500 ml 240 ml Intake Oral 500 ml 240 ml # Voids 1 # Bowel Movements 1 1 Objective GENERAL: Patient is awake, responsive. No acute distress. HEAD AND NECK: Pupils are reactive to light. Extraocular movements intact. Neck was supple. No JVD. LUNGS: Good air entry. No wheezing or rales. Decreased air in bases. HEART: S1, S2. Distant heart sounds. No murmur or gallop. Patient's right chest wall has PermCath. No sign of infection. No discharges. ABDOMEN: Soft, nondistended, nontender. Mildly obese. EXTREMITIES: No cyanosis, clubbing, or edema. Patient was noted to have decreased pulses in the lower extremities as well as patient has venous stasis and wrinkled skin. NEUROLOGIC: Cranial nerves II through to XII grossly intact. Patient is moving all extremities. Gait was not assessed due to patient's status. RECTAL/GENITOURINARY: Refused and deferred. PSYCHIATRIC: Mood and affect is intact. Assessment/Plan Assessment/Plan ASSESSMENT: 1. End-stage renal disease, on hemodialysis. 2. Fluid overload and inability to get dialyze. 3. Diabetes type 2. 4. Hypertension. 5. Anemia of chronic kidney disease. PLAN: Admit patient to medical floor. We will follow up with the laboratory in the morning. Consider Dr. Kevyn Vásquez consultation in the morning for dialysis order. Code status is Full code. DVT prophylaxis, heparin subcutaneous. We will follow up with blood glucose level closely and resume intermediate medication. -hemodialysis today. -Consider discharge to nursing facility in 1 or 2 days. -PT mobility, out of bed to the chair. Pj Hernandez MD Mar 10, 2020 19:56
[2020-03-10 20:00] VITALS: BP 150/79
[2020-03-10] MEDS: Atorvastatin 80mg tab ORAL SCH (21:12)
[2020-03-10] MEDS: Tamsulosin 0.4mg cap ORAL SCH (21:12)
[2020-03-10] MEDS: Epoetin Alfa-EPBX(ESRD on dialysis)10,000 unit/ml vial SUBQ SCH (21:12)
[2020-03-11 04:00] VITALS: BP 145/75
[2020-03-11] MEDS: NovoLOG Insulin Flexpen SUBQ SCH ×4 (05:53→21:15)
[2020-03-11] MEDS: Heparin 5000 units/ml inj SUBQ SCH ×3 (05:53→21:15)
[2020-03-11 08:00] VITALS: BP 138/85
[2020-03-11] MEDS: Docusate 100mg cap ORAL SCH ×3 (09:00→18:00)
[2020-03-11] MEDS: Nephrovite tab (Rena-Vite) ORAL SCH (09:09)
[2020-03-11] MEDS: Aspirin Baby 81mg ORAL SCH (09:11)
[2020-03-11] MEDS: Losartan 25mg tab ORAL SCH (09:13)
--- NOTE | 2020-03-11 11:29 | Pulmonology Progress Note ---
Subjective ROS Limited/Unobtainable: No Constitutional: Reports: no symptoms HEENT: Repors: no symptoms Allergies: Coded Allergies: No Known Allergies (Unverified , 03/08/20) Subjective afebrile, no leukocytosis pulse ox stable on RA no SOB Objective Last 24 Hour Vital Signs Date Time Temp Pulse Resp B/P (MAP) Pulse Ox O2 Delivery O2 Flow Rate FiO2 03/11/20 09:13 138/85 03/11/20 09:10 106 138/85 03/11/20 08:00 98.5 106 20 138/85 (102) 97 03/11/20 04:00 97.5 85 18 145/75 (98) 98 03/10/20 21:00 Room Air 03/10/20 20:00 98.4 90 18 150/79 (102) 99 03/10/20 16:00 97.9 71 18 148/73 (98) 95 03/10/20 12:00 97.9 79 18 135/70 (91) 98 Intake and Output 03/10/20 03/11/20 19:00 07:00 Intake Total 140 ml Balance 140 ml Intake Oral 140 ml # Voids 1 # Bowel Movements 1 General Appearance: WD/WN HEENT: normocephalic, anicteric, mucous membranes moist Respiratory: chest wall non-tender, lungs clear Cardiovascular: normal peripheral pulses, normal rate Abdomen: normal bowel sounds, soft, non tender Extremities: no clubbing Skin: no rash, no lesions Neurologic: alert - confused, responsive Musculoskeletal: normal muscle bulk Microbiology Date/Time Source Procedure Growth Status 03/08/20 18:58 Nasopharynx SARS-CoV-2 RdRp Gene Assay - Final Complete Laboratory Tests 03/10/20 11:47: POC Whole Blood Glucose 186H 03/10/20 14:45: White Blood Count 8.7, Red Blood Count 2.29L, Hemoglobin 7.3L, Hematocrit 23.5L , Mean Corpuscular Volume 103H, Mean Corpuscular Hemoglobin 32.1H, Mean Corpuscular Hemoglobin Concent 31.3L, Red Cell Distribution Width 13.1, Platelet Count 315, Mean Platelet Volume 5.3L, Neutrophils (%) (Auto) , Lymphocytes (%) (Auto) , Monocytes (%) (Auto) , Eosinophils (%) (Auto) , Basophils (%) (Auto) , Differential Total Cells Counted 100, Neutrophils % ( Manual) 66, Lymphocytes % (Manual) 29, Monocytes % (Manual) 2, Eosinophils % ( Manual) 3, Basophils % (Manual) 0, Band Neutrophils 0, Platelet Estimate Adequate, Platelet Morphology Normal, Hypochromasia 1+, Macrocytosis 1+, Sodium Level 140, Potassium Level 4.2, Chloride Level 106, Carbon Dioxide Level 26, Anion Gap 8, Blood Urea Nitrogen 55H, Creatinine 6.8H, Estimat Glomerular Filtration Rate 9.9, Glucose Level 243H, Calcium Level 7.2L 03/10/20 16:40: POC Whole Blood Glucose [Pending] 03/10/20 21:20: POC Whole Blood Glucose [Pending] Current Medications Medications (Trade) Dose Ordered Sig/Analilia Route PRN Reason Start Time Stop Time Status Last Admin Dose Admin Amlodipine Besylate (Norvasc) 10 mg DAILY ORAL 03/09/20 09:00 04/08/20 08:59 03/11/20 09:10 Artificial Tears (Akwa-Tears) 1 drop THREE TIMES A DAY BOTH EYES 03/09/20 09:00 04/08/20 08:59 03/11/20 09:09 Aspirin (ASA) 81 mg DAILY ORAL 03/09/20 09:00 04/23/20 08:59 03/11/20 09:11 Atorvastatin Calcium (Lipitor) 80 mg BEDTIME ORAL 03/09/20 21:00 06/07/20 20:59 03/10/20 21:12 Dextrose (Dextrose 50%) 25 ml Q30M PRN IV Hypoglycemia 03/08/20 23:00 06/06/20 22:59 Dextrose (Dextrose 50%) 50 ml Q30M PRN IV Hypoglycemia 03/08/20 23:00 06/06/20 22:59 Docusate Sodium (Colace) 100 mg THREE TIMES A DAY ORAL 03/09/20 13:00 04/08/20 12:59 03/10/20 17:02 Epoetin Dragan (Epoetin Dragan(ESRD on dialysis)) 10,000 unit FRI-FRI-FRI SUBQ 03/10/20 21:00 06/08/20 20:59 03/10/20 21:12 Ergocalciferol (Drisdol) 50,000 intlu ONCE A WEEK ORAL 03/12/20 09:00 04/11/20 08:59 Ferrous Sulfate (Feosol) 325 mg THREE TIMES A DAY ORAL 03/09/20 09:00 06/07/20 08:59 03/11/20 09:08 Heparin Sodium (Porcine) (Heparin 5000 units/ml) 5,000 units EVERY 8 HOURS SUBQ 03/09/20 06:00 04/23/20 05:59 03/10/20 21:13 Insulin Aspart (NovoLOG) BEFORE MEALS AND HS SUBQ 03/09/20 06:30 06/07/20 06:29 03/10/20 21:23 Losartan Potassium (Cozaar) 25 mg DAILY ORAL 03/09/20 09:00 04/08/20 08:59 03/11/20 09:13 Pantoprazole (Protonix) 40 mg EVERY 12 HOURS ORAL 03/09/20 21:00 04/08/20 20:59 03/11/20 09:09 Sevelamer Carbonate (Renvela) 800 mg THREE TIMES A DAY ORAL 03/09/20 09:00 06/07/20 08:59 03/11/20 09:13 Tamsulosin HCl (Flomax) 0.4 mg BEDTIME ORAL 03/09/20 21:00 04/08/20 20:59 03/10/20 21:12 Vitamin B Complex/ Vit C/Folic Acid (Nephrovite) 1 tab DAILY ORAL 03/09/20 09:00 04/08/20 08:59 03/11/20 09:09 Assessment/Plan Assessment/Plan ASSESSMENT Fluid overload secondary to missed hemodialysis due to lack of transportation End-stage renal disease on hemodialysis Hypertension Diabetes mellitus Anemia of chronic kidney disease PLAN OF CARE MS floor rapid COVID testing negative HD as per lens matcher monitor volumes, renal parameters and lytes supplemental oxygen titrate to keep sat above 92 pulmonary toilet SNF meds resumed aspirin and statin continued BP management with CCB and ARB DVT prophylaxis BS management with SSI monitor H&H with goal to keep hemoglobin above 7 started on EPO GI prophylaxis supportive care dc plan case discussed and evaluated by supervising physician Rachel Botello NP Mar 11, 2020 11:29
[2020-03-11 12:00] VITALS: BP 125/72
--- NOTE | 2020-03-11 13:15 | Nephrology Progress Note ---
Assessment/Plan Problem List: (1) ESRD (end stage renal disease) on dialysis (2) Missed dialysis (3) History of hypertension (4) Fluid overload (5) Anemia in chronic kidney disease (CKD) Assessment End-stage renal disease Anemia of chronic kidney disease Diabetes mellitus Volume overload Plan March 11: Hemodialysis again tomorrow. Patient anemic, iron panel ordered. Patient on Epogen and iron. Continue per consultants. March 10: Hemodialysis today, since dialysis was not done yesterday due to mechanical reasons with the dialysis vendor. Discussed with RN. Today's lab pending will be drawn prior to dialysis by dialysis nurse. Keep the blood pressure and blood sugar in check Flomax nightly Parameters for blood pressure medications Epogen subcu for anemia Per orders Subjective ROS Limited/Unobtainable: No Constitutional: Reports: other - Feels stronger Objective Objective Last 24 Hour Vital Signs Date Time Temp Pulse Resp B/P (MAP) Pulse Ox O2 Delivery O2 Flow Rate FiO2 03/11/20 12:00 98.3 97 17 125/72 (89) 98 03/11/20 09:13 138/85 03/11/20 09:10 106 138/85 03/11/20 09:00 Room Air 03/11/20 08:00 98.5 106 20 138/85 (102) 97 03/11/20 04:00 97.5 85 18 145/75 (98) 98 03/10/20 21:00 Room Air 03/10/20 20:00 98.4 90 18 150/79 (102) 99 03/10/20 16:00 97.9 71 18 148/73 (98) 95 Intake and Output 03/10/20 03/11/20 19:00 07:00 Intake Total 140 ml Balance 140 ml Intake Oral 140 ml # Voids 1 # Bowel Movements 1 Laboratory Tests 03/10/20 14:45: White Blood Count 8.7, Red Blood Count 2.29L, Hemoglobin 7.3L, Hematocrit 23.5L , Mean Corpuscular Volume 103H, Mean Corpuscular Hemoglobin 32.1H, Mean Corpuscular Hemoglobin Concent 31.3L, Red Cell Distribution Width 13.1, Platelet Count 315, Mean Platelet Volume 5.3L, Neutrophils (%) (Auto) , Lymphocytes (%) (Auto) , Monocytes (%) (Auto) , Eosinophils (%) (Auto) , Basophils (%) (Auto) , Differential Total Cells Counted 100, Neutrophils % ( Manual) 66, Lymphocytes % (Manual) 29, Monocytes % (Manual) 2, Eosinophils % ( Manual) 3, Basophils % (Manual) 0, Band Neutrophils 0, Platelet Estimate Adequate, Platelet Morphology Normal, Hypochromasia 1+, Macrocytosis 1+, Sodium Level 140, Potassium Level 4.2, Chloride Level 106, Carbon Dioxide Level 26, Anion Gap 8, Blood Urea Nitrogen 55H, Creatinine 6.8H, Estimat Glomerular Filtration Rate 9.9, Glucose Level 243H, Calcium Level 7.2L 03/10/20 16:40: POC Whole Blood Glucose [Pending] 03/10/20 21:20: POC Whole Blood Glucose [Pending] 03/11/20 11:37: POC Whole Blood Glucose 250H Height (Feet): 5 Height (Inches): 9.00 Weight (Pounds): 201 General Appearance: no apparent distress Cardiovascular: tachycardia Respiratory/Chest: decreased breath sounds Abdomen: soft Kevyn Vásquez MD Mar 11, 2020 13:15
[2020-03-11 16:00] VITALS: BP 125/61
--- NOTE | 2020-03-11 16:27 | Internal Med Progress Note ---
Subjective Date of Service: Mar 11, 2020 Physician Name Ted Worthington Attending Physician Pj Hernandez MD Current Medications Medications (Trade) Dose Ordered Sig/Analilia Route PRN Reason Start Time Stop Time Status Last Admin Dose Admin Amlodipine Besylate (Norvasc) 10 mg DAILY ORAL 03/09/20 09:00 04/08/20 08:59 03/11/20 09:10 Artificial Tears (Akwa-Tears) 1 drop THREE TIMES A DAY BOTH EYES 03/09/20 09:00 04/08/20 08:59 03/11/20 12:28 Aspirin (ASA) 81 mg DAILY ORAL 03/09/20 09:00 04/23/20 08:59 03/11/20 09:11 Atorvastatin Calcium (Lipitor) 80 mg BEDTIME ORAL 03/09/20 21:00 06/07/20 20:59 03/10/20 21:12 Dextrose (Dextrose 50%) 25 ml Q30M PRN IV Hypoglycemia 03/08/20 23:00 06/06/20 22:59 Dextrose (Dextrose 50%) 50 ml Q30M PRN IV Hypoglycemia 03/08/20 23:00 06/06/20 22:59 Docusate Sodium (Colace) 100 mg THREE TIMES A DAY ORAL 03/09/20 13:00 04/08/20 12:59 03/10/20 17:02 Epoetin Dragan (Epoetin Dragan(ESRD on dialysis)) 10,000 unit FRI-FRI-FRI SUBQ 03/10/20 21:00 06/08/20 20:59 03/10/20 21:12 Ferrous Sulfate (Feosol) 325 mg THREE TIMES A DAY ORAL 03/09/20 09:00 06/07/20 08:59 03/11/20 12:27 Heparin Sodium (Porcine) (Heparin 5000 units/ml) 5,000 units EVERY 8 HOURS SUBQ 03/09/20 06:00 04/23/20 05:59 03/11/20 14:38 Insulin Aspart (NovoLOG) BEFORE MEALS AND HS SUBQ 03/09/20 06:30 06/07/20 06:29 03/11/20 11:58 Losartan Potassium (Cozaar) 25 mg DAILY ORAL 03/09/20 09:00 04/08/20 08:59 03/11/20 09:13 Pantoprazole (Protonix) 40 mg EVERY 12 HOURS ORAL 03/09/20 21:00 04/08/20 20:59 03/11/20 09:09 Sevelamer Carbonate (Renvela) 800 mg THREE TIMES A DAY ORAL 03/09/20 09:00 06/07/20 08:59 03/11/20 12:27 Tamsulosin HCl (Flomax) 0.4 mg BEDTIME ORAL 03/09/20 21:00 04/08/20 20:59 03/10/20 21:12 Vitamin B Complex/ Vit C/Folic Acid (Nephrovite) 1 tab DAILY ORAL 03/09/20 09:00 04/08/20 08:59 03/11/20 09:09 Allergies: Coded Allergies: No Known Allergies (Unverified , 03/08/20) ROS Limited/Unobtainable: No Constitutional: Reports: no symptoms HEENT: Reports: no symptoms Cardiovascular: Reports: no symptoms Respiratory: Reports: no symptoms Gastrointestinal/Abdominal: Reports: no symptoms Genitourinary: Reports: no symptoms Neurologic/Psychiatric: Reports: no symptoms Subjective 69 YO M with history of end stage renal failure, admitted for missed dialysis. Cover for Int Med-Dr Hernandez Objective Last Vital Signs Date Time Temp Pulse Resp B/P (MAP) Pulse Ox O2 Delivery O2 Flow Rate FiO2 03/11/20 16:00 98.4 81 18 125/61 (82) 97 03/11/20 09:00 Room Air Laboratory Tests Test 03/10/20 16:40 03/10/20 21:20 03/11/20 11:37 POC Whole Blood Glucose Pending Pending 250 MG/DL (74-106) H Microbiology Date/Time Source Procedure Growth Status 03/08/20 18:58 Nasopharynx SARS-CoV-2 RdRp Gene Assay - Final Complete Intake and Output 03/10/20 03/11/20 19:00 07:00 Intake Total 140 ml Balance 140 ml Intake Oral 140 ml # Voids 1 # Bowel Movements 1 Objective PHYSICAL EXAMINATION: GENERAL: Patient is awake, responsive. No acute distress. HEAD AND NECK: Pupils are reactive to light. Extraocular movements intact. Neck was supple. No JVD. LUNGS: Good air entry. No wheezing or rales. Decreased air in bases. HEART: S1, S2. Distant heart sounds. No murmur or gallop. Patient's right chest wall has PermCath. No sign of infection. No discharges. ABDOMEN: Soft, nondistended, nontender. Mildly obese. EXTREMITIES: No cyanosis, clubbing, or edema. Patient was noted to have decreased pulses in the lower extremities as well as patient has venous stasis and wrinkled skin. NEUROLOGIC: Cranial nerves II through to XII grossly intact. Patient is moving all extremities. Gait was not assessed due to patient's status. RECTAL/GENITOURINARY: Refused and deferred. PSYCHIATRIC: Mood and affect is intact. Assessment/Plan Assessment/Plan ASSESSMENT: 1. End-stage renal disease, on hemodialysis. 2. Fluid overload and inability to get dialyze. 3. Diabetes type 2. 4. Hypertension. 5. Anemia of chronic kidney disease. PLAN: 1. Admit patient to medical floor. 2. Dr. Kevyn Vásquez = nephrology consultation; hemodialysis 03/10/20 3. Code status is Full code. 4. DVT prophylaxis=heparin subcutaneous. Ted Worthington MD Mar 11, 2020 16:27
[2020-03-11 20:00] VITALS: BP 153/77
[2020-03-11] MEDS: Tamsulosin 0.4mg cap ORAL SCH (21:13)
[2020-03-11] MEDS: Atorvastatin 80mg tab ORAL SCH (21:13)
[2020-03-12 04:00] VITALS: BP 159/85
[2020-03-12] MEDS: Heparin 5000 units/ml inj SUBQ SCH ×3 (05:36→21:11)
[2020-03-12] MEDS: NovoLOG Insulin Flexpen SUBQ SCH ×4 (05:37→21:12)
[2020-03-12 06:34] LABS: HEMATOCRIT 24.8 % (42.0-52.0); HEMOGLOBIN 7.7 G/DL (14.2-18.0); MEAN CORPUSCULAR VOLUME 102 FL (80-99); PLATELET COUNT 301 K/UL (150-450); RED BLOOD COUNT 2.42 M/UL (4.70-6.10); RED CELL DISTRIBUTION WIDTH 12.1 % (11.6-14.8); WHITE BLOOD COUNT 8.5 K/UL (4.8-10.8)
[2020-03-12 06:43] LABS: ANION GAP 8 mmol/L (5-15); BLOOD UREA NITROGEN 46 mg/dL (7-18); CALCIUM 7.8 MG/DL (8.5-10.1); CARBON DIOXIDE 30 MMOL/L (21-32); CHLORIDE 103 MMOL/L (98-107); CREATININE 6.4 MG/DL (0.55-1.30); POTASSIUM 3.9 MMOL/L (3.5-5.1); SODIUM 141 MMOL/L (136-145)
[2020-03-12 07:27] LABS: % IRON SATURATION 21 % (15-50); IRON 34 ug/dL (50-175); TOTAL IRON BINDING CAPACITY 159 ug/dL (250-450)
[2020-03-12 08:58] LABS: FERRITIN 379 NG/ML (8-388)
[2020-03-12] MEDS: Losartan 25mg tab ORAL SCH ×2 (09:00→10:15)
[2020-03-12] MEDS ORDERED: Vitamin D 50,000 units cap ORAL SCH (09:00)
[2020-03-12] MEDS: Docusate 100mg cap ORAL SCH ×3 (09:00→17:09)
[2020-03-12 10:00] VITALS: BP 129/69
[2020-03-12] MEDS: Nephrovite tab (Rena-Vite) ORAL SCH (10:16)
[2020-03-12] MEDS: Aspirin Baby 81mg ORAL SCH (10:16)
--- NOTE | 2020-03-12 10:33 | Nephrology Progress Note ---
Assessment/Plan Problem List: (1) ESRD (end stage renal disease) on dialysis (2) Missed dialysis (3) History of hypertension (4) Fluid overload (5) Anemia in chronic kidney disease (CKD) (6) History of diabetes mellitus Assessment End-stage renal disease Anemia of chronic kidney disease Diabetes mellitus Volume overload Plan March 12: Due for dialysis today. IV iron ordered. Labs reviewed. Blood pressure stable. March 11: Hemodialysis again tomorrow. Patient anemic, iron panel ordered. Patient on Epogen and iron. Continue per consultants. March 10: Hemodialysis today, since dialysis was not done yesterday due to mechanical reasons with the dialysis vendor. Discussed with RN. Today's lab pending will be drawn prior to dialysis by dialysis nurse. Keep the blood pressure and blood sugar in check Flomax nightly Parameters for blood pressure medications Epogen subcu for anemia Per orders Subjective ROS Limited/Unobtainable: No Objective Objective Last 24 Hour Vital Signs Date Time Temp Pulse Resp B/P (MAP) Pulse Ox O2 Delivery O2 Flow Rate FiO2 03/12/20 10:00 98.6 85 18 129/69 (89) 98 03/12/20 09:00 129/69 03/12/20 09:00 85 129/69 03/12/20 04:00 98.4 89 20 159/85 (109) 98 03/11/20 21:00 Room Air 03/11/20 20:00 98.7 84 18 153/77 (102) 98 03/11/20 16:00 98.4 81 18 125/61 (82) 97 03/11/20 12:00 98.3 97 17 125/72 (89) 98 Intake and Output 03/11/20 03/12/20 19:00 07:00 Intake Total 720 ml Balance 720 ml Intake Oral 720 ml # Voids 3 # Bowel Movements 2 1 Laboratory Tests 03/11/20 11:37: POC Whole Blood Glucose 250H 03/11/20 16:57: POC Whole Blood Glucose 191H 03/11/20 21:12: POC Whole Blood Glucose 291H 03/12/20 05:00: White Blood Count 8.5, Red Blood Count 2.42L, Hemoglobin 7.7L, Hematocrit 24.8L , Mean Corpuscular Volume 102H, Mean Corpuscular Hemoglobin 31.9H, Mean Corpuscular Hemoglobin Concent 31.2L, Red Cell Distribution Width 12.1, Platelet Count 301, Mean Platelet Volume 5.1L, Neutrophils (%) (Auto) , Lymphocytes (%) (Auto) , Monocytes (%) (Auto) , Eosinophils (%) (Auto) , Basophils (%) (Auto) , Neutrophils % (Manual) [Pending], Lymphocytes % (Manual) [Pending], Platelet Estimate [Pending], Platelet Morphology [Pending], Sodium Level 141, Potassium Level 3.9, Chloride Level 103, Carbon Dioxide Level 30, Anion Gap 8, Blood Urea Nitrogen 46H, Creatinine 6.4H, Estimat Glomerular Filtration Rate 10.7, Glucose Level 143H, Calcium Level 7.8L, Iron Level 34L, Total Iron Binding Capacity 159L, Percent Iron Saturation 21, Unsaturated Iron Binding 125, Ferritin 379, Vitamin B12 Level 623, Folate 6.3L 03/12/20 05:34: POC Whole Blood Glucose 152H Height (Feet): 5 Height (Inches): 9.00 Weight (Pounds): 201 General Appearance: no apparent distress Cardiovascular: normal rate - Rate in 80s Respiratory/Chest: lungs clear Abdomen: soft Objective No change Kevyn Vásquez MD Mar 12, 2020 10:33
[2020-03-12 10:42] LABS: ALANINE AMINOTRANSFERASE 21 U/L (12-78); ALBUMIN 1.9 G/DL (3.4-5.0); ALKALINE PHOSPHATASE 63 U/L (46-116); ASPARTATE AMINO TRANSFERASE 21 U/L (15-37); BILIRUBIN,DIRECT < 0.1 MG/DL (0.0-0.3); BILIRUBIN,TOTAL 0.3 MG/DL (0.2-1.0); PHOSPHORUS 2.9 MG/DL (2.5-4.9)
--- NOTE | 2020-03-12 11:50 | Pulmonology Progress Note ---
Subjective ROS Limited/Unobtainable: No Constitutional: Reports: no symptoms HEENT: Repors: no symptoms Allergies: Coded Allergies: No Known Allergies (Unverified , 03/08/20) Subjective afebrile, no leukocytosis pulse ox stable on RA no SOB Objective Last 24 Hour Vital Signs Date Time Temp Pulse Resp B/P (MAP) Pulse Ox O2 Delivery O2 Flow Rate FiO2 03/12/20 10:00 98.6 85 18 129/69 (89) 98 03/12/20 09:00 129/69 03/12/20 09:00 85 129/69 03/12/20 04:00 98.4 89 20 159/85 (109) 98 03/11/20 21:00 Room Air 03/11/20 20:00 98.7 84 18 153/77 (102) 98 03/11/20 16:00 98.4 81 18 125/61 (82) 97 03/11/20 12:00 98.3 97 17 125/72 (89) 98 Intake and Output 03/11/20 03/12/20 19:00 07:00 Intake Total 720 ml Balance 720 ml Intake Oral 720 ml # Voids 3 # Bowel Movements 2 1 General Appearance: WD/WN HEENT: normocephalic, anicteric, mucous membranes moist Respiratory: chest wall non-tender, lungs clear Cardiovascular: normal peripheral pulses, normal rate Abdomen: normal bowel sounds, soft, non tender Extremities: no clubbing Skin: no rash, no lesions Neurologic: alert - confused, responsive Musculoskeletal: normal muscle bulk Laboratory Tests 03/11/20 16:57: POC Whole Blood Glucose 191H 03/11/20 21:12: POC Whole Blood Glucose 291H 03/12/20 05:00: White Blood Count 8.5, Red Blood Count 2.42L, Hemoglobin 7.7L, Hematocrit 24.8L , Mean Corpuscular Volume 102H, Mean Corpuscular Hemoglobin 31.9H, Mean Corpuscular Hemoglobin Concent 31.2L, Red Cell Distribution Width 12.1, Platelet Count 301, Mean Platelet Volume 5.1L, Neutrophils (%) (Auto) , Lymphocytes (%) (Auto) , Monocytes (%) (Auto) , Eosinophils (%) (Auto) , Basophils (%) (Auto) , Differential Total Cells Counted 100, Neutrophils % ( Manual) 62, Lymphocytes % (Manual) 28, Monocytes % (Manual) 6, Eosinophils % ( Manual) 2, Basophils % (Manual) 2, Band Neutrophils 0, Platelet Estimate Adequate, Platelet Morphology Normal, Hypochromasia 3+, Anisocytosis 1+, Macrocytosis 1+, Sodium Level 141, Potassium Level 3.9, Chloride Level 103, Carbon Dioxide Level 30, Anion Gap 8, Blood Urea Nitrogen 46H, Creatinine 6.4H, Estimat Glomerular Filtration Rate 10.7, Glucose Level 143H, Uric Acid 6.2, Calcium Level 7.8L, Phosphorus Level 2.9, Iron Level 34L, Total Iron Binding Capacity 159L, Percent Iron Saturation 21, Unsaturated Iron Binding 125, Ferritin 379, Total Bilirubin 0.3, Direct Bilirubin < 0.1, Aspartate Amino Transf (AST/SGOT) 21, Alanine Aminotransferase (ALT/SGPT) 21, Alkaline Phosphatase 63, Total Protein 6.6, Albumin 1.9L, Vitamin B12 Level 623, Folate 6.3L 03/12/20 05:34: POC Whole Blood Glucose 152H Current Medications Medications (Trade) Dose Ordered Sig/Analilia Route PRN Reason Start Time Stop Time Status Last Admin Dose Admin Amlodipine Besylate (Norvasc) 10 mg DAILY ORAL 03/09/20 09:00 04/08/20 08:59 03/11/20 09:10 Artificial Tears (Akwa-Tears) 1 drop THREE TIMES A DAY BOTH EYES 03/09/20 09:00 04/08/20 08:59 03/12/20 10:15 Aspirin (ASA) 81 mg DAILY ORAL 03/09/20 09:00 04/23/20 08:59 03/12/20 10:16 Atorvastatin Calcium (Lipitor) 80 mg BEDTIME ORAL 03/09/20 21:00 06/07/20 20:59 03/11/20 21:13 Dextrose (Dextrose 50%) 25 ml Q30M PRN IV Hypoglycemia 03/08/20 23:00 06/06/20 22:59 Dextrose (Dextrose 50%) 50 ml Q30M PRN IV Hypoglycemia 03/08/20 23:00 06/06/20 22:59 Docusate Sodium (Colace) 100 mg THREE TIMES A DAY ORAL 03/09/20 13:00 04/08/20 12:59 03/10/20 17:02 Epoetin Dragan (Epoetin Dragan(ESRD on dialysis)) 10,000 unit FRI-FRI-FRI SUBQ 03/10/20 21:00 06/08/20 20:59 03/10/20 21:12 Ferrous Sulfate (Feosol) 325 mg THREE TIMES A DAY ORAL 03/09/20 09:00 06/07/20 08:59 03/12/20 10:15 Folic Acid (Folate) 1 mg DAILY ORAL 03/12/20 10:30 04/11/20 10:29 03/12/20 10:43 Heparin Sodium (Porcine) (Heparin 5000 units/ml) 5,000 units EVERY 8 HOURS SUBQ 03/09/20 06:00 04/23/20 05:59 03/12/20 05:36 Insulin Aspart (NovoLOG) BEFORE MEALS AND HS SUBQ 03/09/20 06:30 06/07/20 06:29 03/12/20 05:37 Iron Sucrose 100 mg/Sodium Chloride 55 ml @ 200 mls/hr BEDTIME IV 03/12/20 21:00 03/16/20 21:17 Losartan Potassium (Cozaar) 25 mg DAILY ORAL 03/09/20 09:00 04/08/20 08:59 03/11/20 09:13 Pantoprazole (Protonix) 40 mg EVERY 12 HOURS ORAL 03/09/20 21:00 04/08/20 20:59 03/12/20 10:15 Sevelamer Carbonate (Renvela) 800 mg THREE TIMES A DAY ORAL 03/09/20 09:00 06/07/20 08:59 03/12/20 10:16 Tamsulosin HCl (Flomax) 0.4 mg BEDTIME ORAL 03/09/20 21:00 04/08/20 20:59 03/11/20 21:13 Vitamin B Complex/ Vit C/Folic Acid (Nephrovite) 1 tab DAILY ORAL 03/09/20 09:00 04/08/20 08:59 03/12/20 10:16 Assessment/Plan Assessment/Plan ASSESSMENT Fluid overload secondary to missed hemodialysis due to lack of transportation End-stage renal disease on hemodialysis Hypertension Diabetes mellitus Anemia of chronic kidney disease PLAN OF CARE MS floor rapid COVID testing negative 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
[2020-03-12 12:00] VITALS: BP 145/79
[2020-03-12] MEDS: Epoetin Alfa-EPBX(ESRD on dialysis)10,000 unit/ml vial SUBQ SCH (14:02)
[2020-03-12 16:00] VITALS: BP 128/70
--- NOTE | 2020-03-12 17:06 | Internal Med Progress Note ---
Subjective Date of Service: Mar 12, 2020 Physician Name Ted Worthington Attending Physician Pj Hernandez MD Current Medications Medications (Trade) Dose Ordered Sig/Analilia Route PRN Reason Start Time Stop Time Status Last Admin Dose Admin Amlodipine Besylate (Norvasc) 10 mg DAILY ORAL 03/09/20 09:00 04/08/20 08:59 03/11/20 09:10 Artificial Tears (Akwa-Tears) 1 drop THREE TIMES A DAY BOTH EYES 03/09/20 09:00 04/08/20 08:59 03/12/20 13:22 Aspirin (ASA) 81 mg DAILY ORAL 03/09/20 09:00 04/23/20 08:59 03/12/20 10:16 Atorvastatin Calcium (Lipitor) 80 mg BEDTIME ORAL 03/09/20 21:00 06/07/20 20:59 03/11/20 21:13 Dextrose (Dextrose 50%) 25 ml Q30M PRN IV Hypoglycemia 03/08/20 23:00 06/06/20 22:59 Dextrose (Dextrose 50%) 50 ml Q30M PRN IV Hypoglycemia 03/08/20 23:00 06/06/20 22:59 Docusate Sodium (Colace) 100 mg THREE TIMES A DAY ORAL 03/09/20 13:00 04/08/20 12:59 03/10/20 17:02 Epoetin Dragan (Epoetin Dragan(ESRD on dialysis)) 10,000 unit FRI-FRI-FRI SUBQ 03/10/20 21:00 06/08/20 20:59 03/12/20 14:02 Ferrous Sulfate (Feosol) 325 mg THREE TIMES A DAY ORAL 03/09/20 09:00 06/07/20 08:59 03/12/20 10:15 Folic Acid (Folate) 1 mg DAILY ORAL 03/12/20 10:30 04/11/20 10:29 03/12/20 10:43 Heparin Sodium (Porcine) (Heparin 5000 units/ml) 5,000 units EVERY 8 HOURS SUBQ 03/09/20 06:00 04/23/20 05:59 03/12/20 13:24 Insulin Aspart (NovoLOG) BEFORE MEALS AND HS SUBQ 03/09/20 06:30 06/07/20 06:29 03/12/20 16:45 Iron Sucrose 100 mg/Sodium Chloride 55 ml @ 200 mls/hr BEDTIME IV 03/12/20 21:00 03/16/20 21:17 Losartan Potassium (Cozaar) 25 mg DAILY ORAL 03/09/20 09:00 04/08/20 08:59 03/11/20 09:13 Pantoprazole (Protonix) 40 mg EVERY 12 HOURS ORAL 03/09/20 21:00 04/08/20 20:59 03/12/20 10:15 Sevelamer Carbonate (Renvela) 800 mg THREE TIMES A DAY ORAL 03/09/20 09:00 06/07/20 08:59 03/12/20 10:16 Tamsulosin HCl (Flomax) 0.4 mg BEDTIME ORAL 03/09/20 21:00 04/08/20 20:59 03/11/20 21:13 Vitamin B Complex/ Vit C/Folic Acid (Nephrovite) 1 tab DAILY ORAL 03/09/20 09:00 04/08/20 08:59 03/12/20 10:16 Allergies: Coded Allergies: No Known Allergies (Unverified , 03/08/20) ROS Limited/Unobtainable: No Constitutional: Reports: no symptoms HEENT: Reports: no symptoms Cardiovascular: Reports: no symptoms Respiratory: Reports: no symptoms Gastrointestinal/Abdominal: Reports: no symptoms Genitourinary: Reports: no symptoms Neurologic/Psychiatric: Reports: no symptoms Subjective 69 YO M with history of end stage renal failure, admitted for missed dialysis. Cover for Int Nic-Dr Hernandez Objective Last Vital Signs Date Time Temp Pulse Resp B/P (MAP) Pulse Ox O2 Delivery O2 Flow Rate FiO2 03/12/20 16:00 98.4 83 16 128/70 (89) 98 03/12/20 09:00 Room Air Laboratory Tests Test 03/11/20 21:12 03/12/20 05:00 03/12/20 05:34 03/12/20 12:06 POC Whole Blood Glucose 291 MG/DL (74-106) H 152 MG/DL (74-106) H 250 MG/DL (74-106) H White Blood Count 8.5 K/UL (4.8-10.8) Red Blood Count 2.42 M/UL (4.70-6.10) L Hemoglobin 7.7 G/DL (14.2-18.0) L Hematocrit 24.8 % (42.0-52.0) L Mean Corpuscular Volume 102 FL (80-99) H Mean Corpuscular Hemoglobin 31.9 PG (27.0-31.0) H Mean Corpuscular Hemoglobin Concent 31.2 G/DL (32.0-36.0) L Red Cell Distribution Width 12.1 % (11.6-14.8) Platelet Count 301 K/UL (150-450) Mean Platelet Volume 5.1 FL (6.5-10.1) L Neutrophils (%) (Auto) % (45.0-75.0) Lymphocytes (%) (Auto) % (20.0-45.0) Monocytes (%) (Auto) % (1.0-10.0) Eosinophils (%) (Auto) % (0.0-3.0) Basophils (%) (Auto) % (0.0-2.0) Differential Total Cells Counted 100 Neutrophils % (Manual) 62 % (45-75) Lymphocytes % (Manual) 28 % (20-45) Monocytes % (Manual) 6 % (1-10) Eosinophils % (Manual) 2 % (0-3) Basophils % (Manual) 2 % (0-2) Band Neutrophils 0 % (0-8) Platelet Estimate Adequate Platelet Morphology Normal Hypochromasia 3+ Anisocytosis 1+ Macrocytosis 1+ Sodium Level 141 MMOL/L (136-145) Potassium Level 3.9 MMOL/L (3.5-5.1) Chloride Level 103 MMOL/L (98-107) Carbon Dioxide Level 30 MMOL/L (21-32) Anion Gap 8 mmol/L (5-15) Blood Urea Nitrogen 46 mg/dL (7-18) H Creatinine 6.4 MG/DL (0.55-1.30) H Estimat Glomerular Filtration Rate 10.7 mL/min (>60) Glucose Level 143 MG/DL (74-106) H Uric Acid 6.2 MG/DL (2.6-7.2) Calcium Level 7.8 MG/DL (8.5-10.1) L Phosphorus Level 2.9 MG/DL (2.5-4.9) Iron Level 34 ug/dL (50-175) L Total Iron Binding Capacity 159 ug/dL (250-450) L Percent Iron Saturation 21 % (15-50) Unsaturated Iron Binding 125 ug/dL (112-346) Ferritin 379 NG/ML (8-388) Total Bilirubin 0.3 MG/DL (0.2-1.0) Direct Bilirubin < 0.1 MG/DL (0.0-0.3) Aspartate Amino Transf (AST/SGOT) 21 U/L (15-37) Alanine Aminotransferase (ALT/SGPT) 21 U/L (12-78) Alkaline Phosphatase 63 U/L (46-116) Total Protein 6.6 G/DL (6.4-8.2) Albumin 1.9 G/DL (3.4-5.0) L Vitamin B12 Level 623 PG/ML (193-986) Folate 6.3 NG/ML (8.6-58.9) L Test 03/12/20 16:27 POC Whole Blood Glucose 195 MG/DL (74-106) H Intake and Output 03/11/20 03/12/20 19:00 07:00 Intake Total 720 ml Balance 720 ml Intake Oral 720 ml # Voids 3 # Bowel Movements 2 1 Objective PHYSICAL EXAMINATION: GENERAL: Patient is awake, responsive. No acute distress. HEAD AND NECK: Pupils are reactive to light. Extraocular movements intact. Neck was supple. No JVD. LUNGS: Good air entry. No wheezing or rales. Decreased air in bases. HEART: S1, S2. Distant heart sounds. No murmur or gallop. Patient's right chest wall has PermCath. No sign of infection. No discharges. ABDOMEN: Soft, nondistended, nontender. Mildly obese. EXTREMITIES: No cyanosis, clubbing, or edema. Patient was noted to have decreased pulses in the lower extremities as well as patient has venous stasis and wrinkled skin. NEUROLOGIC: Cranial nerves II through to XII grossly intact. Patient is moving all extremities. Gait was not assessed due to patient's status. RECTAL/GENITOURINARY: Refused and deferred. PSYCHIATRIC: Mood and affect is intact. Assessment/Plan Assessment/Plan ASSESSMENT: 1. End-stage renal disease, on hemodialysis. 2. Fluid overload due to missed dialysis. 3. Diabetes type 2. 4. Hypertension. 5. Anemia of chronic kidney disease. PLAN: 1. Admit patient to medical floor. 2. Dr. Kevyn Vásquez = nephrology consultation; hemodialysis 03/12/20 3. Code status is Full code. 4. DVT prophylaxis=heparin subcutaneous. eTd Worthington MD Mar 12, 2020 17:06
[2020-03-12 20:00] VITALS: BP 140/81
[2020-03-12] MEDS: Atorvastatin 80mg tab ORAL SCH (21:08)
[2020-03-12] MEDS: Tamsulosin 0.4mg cap ORAL SCH (21:09)
[2020-03-13 04:00] VITALS: BP 141/81
[2020-03-13] MEDS: Heparin 5000 units/ml inj SUBQ SCH ×3 (05:47→21:12)
[2020-03-13] MEDS: NovoLOG Insulin Flexpen SUBQ SCH ×4 (05:47→21:09)
[2020-03-13 06:42] LABS: HEMATOCRIT 23.5 % (42.0-52.0); HEMOGLOBIN 7.3 G/DL (14.2-18.0); MEAN CORPUSCULAR VOLUME 103 FL (80-99); PLATELET COUNT 263 K/UL (150-450); RED BLOOD COUNT 2.28 M/UL (4.70-6.10); RED CELL DISTRIBUTION WIDTH 12.3 % (11.6-14.8); WHITE BLOOD COUNT 8.1 K/UL (4.8-10.8)
[2020-03-13 07:03] LABS: ANION GAP 8 mmol/L (5-15); BLOOD UREA NITROGEN 31 mg/dL (7-18); CALCIUM 7.7 MG/DL (8.5-10.1); CARBON DIOXIDE 28 MMOL/L (21-32); CHLORIDE 103 MMOL/L (98-107); CREATININE 5.1 MG/DL (0.55-1.30); POTASSIUM 3.8 MMOL/L (3.5-5.1); SODIUM 139 MMOL/L (136-145)
[2020-03-13 07:41] LABS: CHOLESTEROL 102 MG/DL (< 200); HDL CHOLESTEROL 44 MG/DL (40-60); TRIGLYCERIDES 60 MG/DL (30-150)
[2020-03-13 08:00] VITALS: BP 142/79
[2020-03-13] MEDS: Losartan 25mg tab ORAL SCH (08:29)
[2020-03-13] MEDS: Aspirin Baby 81mg ORAL SCH (08:30)
[2020-03-13] MEDS: Nephrovite tab (Rena-Vite) ORAL SCH (08:30)
[2020-03-13] MEDS: Docusate 100mg cap ORAL SCH ×3 (08:30→17:44)
[2020-03-13 10:10] LABS: ALANINE AMINOTRANSFERASE 20 U/L (12-78); ALBUMIN 1.9 G/DL (3.4-5.0); ALKALINE PHOSPHATASE 66 U/L (46-116); ASPARTATE AMINO TRANSFERASE 21 U/L (15-37); BILIRUBIN,DIRECT < 0.1 MG/DL (0.0-0.3); BILIRUBIN,TOTAL 0.2 MG/DL (0.2-1.0); PHOSPHORUS 2.6 MG/DL (2.5-4.9)
--- NOTE | 2020-03-13 10:36 | Nephrology Progress Note ---
Assessment/Plan Problem List: (1) ESRD (end stage renal disease) on dialysis (2) Missed dialysis (3) History of hypertension (4) Fluid overload (5) Anemia in chronic kidney disease (CKD) (6) History of diabetes mellitus Assessment End-stage renal disease Anemia of chronic kidney disease Diabetes mellitus Volume overload Plan March 13: Dialyzed yesterday. Lab reviewed. Blood pressure stable. Due for dialysis tomorrow. March 12: Due for dialysis today. IV iron ordered. Labs reviewed. Blood pressure stable. March 11: Hemodialysis again tomorrow. Patient anemic, iron panel ordered. Patient on Epogen and iron. Continue per consultants. March 10: Hemodialysis today, since dialysis was not done yesterday due to mechanical reasons with the dialysis vendor. Discussed with RN. Today's lab pending will be drawn prior to dialysis by dialysis nurse. Keep the blood pressure and blood sugar in check Flomax nightly Parameters for blood pressure medications Epogen subcu for anemia Per orders Subjective ROS Limited/Unobtainable: No Objective Objective Last 24 Hour Vital Signs Date Time Temp Pulse Resp B/P (MAP) Pulse Ox O2 Delivery O2 Flow Rate FiO2 03/13/20 09:00 Room Air 03/13/20 08:30 84 142/79 03/13/20 08:29 142/79 03/13/20 08:00 98.7 84 18 142/79 (100) 98 03/13/20 04:00 98.8 86 18 141/81 (101) 97 03/12/20 21:00 Room Air 03/12/20 20:00 99.4 89 20 140/81 (100) 99 03/12/20 16:00 98.4 83 16 128/70 (89) 98 03/12/20 12:00 98.0 86 16 145/79 (101) 97 Intake and Output 03/12/20 03/13/20 19:00 07:00 Intake Total 600 ml 200 ml Balance 600 ml 200 ml Intake Oral 600 ml 200 ml # Voids 2 # Bowel Movements 2 1 Current Medications Medications (Trade) Dose Ordered Sig/Analilia Route PRN Reason Start Time Stop Time Status Last Admin Dose Admin Amlodipine Besylate (Norvasc) 10 mg DAILY ORAL 03/09/20 09:00 04/08/20 08:59 03/13/20 08:30 Artificial Tears (Akwa-Tears) 1 drop THREE TIMES A DAY BOTH EYES 03/09/20 09:00 04/08/20 08:59 03/13/20 08:38 Aspirin (ASA) 81 mg DAILY ORAL 03/09/20 09:00 04/23/20 08:59 03/13/20 08:30 Atorvastatin Calcium (Lipitor) 80 mg BEDTIME ORAL 03/09/20 21:00 06/07/20 20:59 03/12/20 21:08 Dextrose (Dextrose 50%) 25 ml Q30M PRN IV Hypoglycemia 03/08/20 23:00 06/06/20 22:59 Dextrose (Dextrose 50%) 50 ml Q30M PRN IV Hypoglycemia 03/08/20 23:00 06/06/20 22:59 Docusate Sodium (Colace) 100 mg THREE TIMES A DAY ORAL 03/09/20 13:00 04/08/20 12:59 03/13/20 08:30 Epoetin Dragan (Epoetin Dragan(ESRD on dialysis)) 10,000 unit FRI- SUBQ 03/10/20 21:00 06/08/20 20:59 03/12/20 14:02 Ferrous Sulfate (Feosol) 325 mg THREE TIMES A DAY ORAL 03/09/20 09:00 06/07/20 08:59 03/13/20 08:30 Folic Acid (Folate) 1 mg DAILY ORAL 03/12/20 10:30 04/11/20 10:29 03/13/20 08:30 Heparin Sodium (Porcine) (Heparin 5000 units/ml) 5,000 units EVERY 8 HOURS SUBQ 03/09/20 06:00 04/23/20 05:59 03/13/20 05:47 Insulin Aspart (NovoLOG) BEFORE MEALS AND HS SUBQ 03/09/20 06:30 06/07/20 06:29 03/13/20 05:47 Iron Sucrose 100 mg/Sodium Chloride 55 ml @ 200 mls/hr BEDTIME IV 03/12/20 21:00 03/16/20 21:17 03/12/20 21:08 Losartan Potassium (Cozaar) 25 mg DAILY ORAL 03/09/20 09:00 04/08/20 08:59 03/13/20 08:29 Pantoprazole (Protonix) 40 mg EVERY 12 HOURS ORAL 03/09/20 21:00 04/08/20 20:59 03/13/20 08:29 Sevelamer Carbonate (Renvela) 800 mg THREE TIMES A DAY ORAL 03/09/20 09:00 06/07/20 08:59 03/13/20 08:29 Tamsulosin HCl (Flomax) 0.4 mg BEDTIME ORAL 03/09/20 21:00 04/08/20 20:59 03/12/20 21:09 Vitamin B Complex/ Vit C/Folic Acid (Nephrovite) 1 tab DAILY ORAL 03/09/20 09:00 04/08/20 08:59 03/13/20 08:30 Laboratory Tests 03/12/20 12:06: POC Whole Blood Glucose 250H 03/12/20 16:27: POC Whole Blood Glucose 195H 03/12/20 21:00: POC Whole Blood Glucose 258H 03/13/20 05:00: Phosphorus Level 2.8, Triglycerides Level 60, Cholesterol Level 102, LDL Cholesterol 44, HDL Cholesterol 44, Cholesterol/HDL Ratio 2.3L 03/13/20 05:10: White Blood Count 8.1, Red Blood Count 2.28L, Hemoglobin 7.3L, Hematocrit 23.5L , Mean Corpuscular Volume 103H, Mean Corpuscular Hemoglobin 32.1H, Mean Corpuscular Hemoglobin Concent 31.2L, Red Cell Distribution Width 12.3, Platelet Count 263, Mean Platelet Volume 5.1L, Neutrophils (%) (Auto) , Lymphocytes (%) (Auto) , Monocytes (%) (Auto) , Eosinophils (%) (Auto) , Basophils (%) (Auto) , Differential Total Cells Counted 100, Neutrophils % ( Manual) 68, Lymphocytes % (Manual) 25, Monocytes % (Manual) 3, Eosinophils % ( Manual) 4H, Basophils % (Manual) 0, Band Neutrophils 0, Platelet Estimate Adequate, Platelet Morphology Normal, Hypochromasia 1+, Macrocytosis 1+, Sodium Level 139, Potassium Level 3.8, Chloride Level 103, Carbon Dioxide Level 28, Anion Gap 8, Blood Urea Nitrogen 31H, Creatinine 5.1H, Estimat Glomerular Filtration Rate 13.8, Glucose Level 189H, Calcium Level 7.7L, Phosphorus Level 2.6, Magnesium Level 1.7L, Total Bilirubin 0.2, Direct Bilirubin < 0.1, Aspartate Amino Transf (AST/SGOT) 21, Alanine Aminotransferase (ALT/SGPT) 20, Alkaline Phosphatase 66, Total Protein 6.4, Albumin 1.9L 03/13/20 05:15: POC Whole Blood Glucose 174H Height (Feet): 5 Height (Inches): 9.00 Weight (Pounds): 198 General Appearance: no apparent distress Cardiovascular: normal rate Respiratory/Chest: lungs clear Abdomen: soft Objective No change Kevyn Vásquez MD Mar 13, 2020 10:36
--- NOTE | 2020-03-13 11:37 | Diagnostic Imaging Report ---
Indication: Shortness of Technique: One view of the chest Comparison: 03/08/2020 Findings: Increasing dense consolidation is seen at the right lung base. There may be some pleural fluid as well. There is probably a small amount of pleural fluid on the left. The upper lungs are clear. Right jugular tunneled dialysis catheter remains. The heart is upper limits normal in size Impression: Increasingly dense right basilar consolidation, likely reflects increasing infiltrate. Otherwise stable findings as described
[2020-03-13 12:00] VITALS: BP 150/89
--- NOTE | 2020-03-13 13:22 | Internal Med Progress Note ---
Subjective Date of Service: Mar 13, 2020 Physician Name Ted Worthignton Attending Physician Pj Hernandez MD Current Medications Medications (Trade) Dose Ordered Sig/Analilia Route PRN Reason Start Time Stop Time Status Last Admin Dose Admin Amlodipine Besylate (Norvasc) 10 mg DAILY ORAL 03/09/20 09:00 04/08/20 08:59 03/13/20 08:30 Artificial Tears (Akwa-Tears) 1 drop THREE TIMES A DAY BOTH EYES 03/09/20 09:00 04/08/20 08:59 03/13/20 08:38 Aspirin (ASA) 81 mg DAILY ORAL 03/09/20 09:00 04/23/20 08:59 03/13/20 08:30 Atorvastatin Calcium (Lipitor) 80 mg BEDTIME ORAL 03/09/20 21:00 06/07/20 20:59 03/12/20 21:08 Dextrose (Dextrose 50%) 25 ml Q30M PRN IV Hypoglycemia 03/08/20 23:00 06/06/20 22:59 Dextrose (Dextrose 50%) 50 ml Q30M PRN IV Hypoglycemia 03/08/20 23:00 06/06/20 22:59 Docusate Sodium (Colace) 100 mg THREE TIMES A DAY ORAL 03/09/20 13:00 04/08/20 12:59 03/13/20 08:30 Epoetin Dragan (Epoetin Dragan(ESRD on dialysis)) 10,000 unit FRI-FRI-FRI SUBQ 03/10/20 21:00 06/08/20 20:59 03/12/20 14:02 Folic Acid (Folate) 1 mg DAILY ORAL 03/12/20 10:30 04/11/20 10:29 03/13/20 08:30 Heparin Sodium (Porcine) (Heparin 5000 units/ml) 5,000 units EVERY 8 HOURS SUBQ 03/09/20 06:00 04/23/20 05:59 03/13/20 05:47 Insulin Aspart (NovoLOG) BEFORE MEALS AND HS SUBQ 03/09/20 06:30 06/07/20 06:29 03/13/20 11:35 Iron Sucrose 100 mg/Sodium Chloride 55 ml @ 200 mls/hr BEDTIME IV 03/12/20 21:00 03/16/20 21:17 03/12/20 21:08 Losartan Potassium (Cozaar) 25 mg DAILY ORAL 03/09/20 09:00 04/08/20 08:59 03/13/20 08:29 Pantoprazole (Protonix) 40 mg EVERY 12 HOURS ORAL 03/09/20 21:00 04/08/20 20:59 03/13/20 08:29 Sevelamer Carbonate (Renvela) 800 mg THREE TIMES A DAY ORAL 03/09/20 09:00 06/07/20 08:59 03/13/20 08:29 Tamsulosin HCl (Flomax) 0.4 mg BEDTIME ORAL 03/09/20 21:00 04/08/20 20:59 03/12/20 21:09 Vitamin B Complex/ Vit C/Folic Acid (Nephrovite) 1 tab DAILY ORAL 03/09/20 09:00 04/08/20 08:59 03/13/20 08:30 Allergies: Coded Allergies: No Known Allergies (Unverified , 03/08/20) ROS Limited/Unobtainable: No Constitutional: Reports: no symptoms HEENT: Reports: no symptoms Cardiovascular: Reports: no symptoms Respiratory: Reports: no symptoms Gastrointestinal/Abdominal: Reports: no symptoms Genitourinary: Reports: no symptoms Neurologic/Psychiatric: Reports: no symptoms Subjective 69 YO M with history of end stage renal failure, admitted for missed dialysis. Cover for Int Nic-Dr Hernandez Objective Last Vital Signs Date Time Temp Pulse Resp B/P (MAP) Pulse Ox O2 Delivery O2 Flow Rate FiO2 03/13/20 09:00 Room Air 03/13/20 08:30 84 142/79 03/13/20 08:00 98.7 18 98 Laboratory Tests Test 03/12/20 16:27 03/12/20 21:00 03/13/20 05:00 03/13/20 05:10 POC Whole Blood Glucose 195 MG/DL (74-106) H 258 MG/DL (74-106) H Phosphorus Level 2.8 MG/DL (2.5-4.9) 2.6 MG/DL (2.5-4.9) Triglycerides Level 60 MG/DL (30-150) Cholesterol Level 102 MG/DL (< 200) LDL Cholesterol 44 mg/dL (<100) HDL Cholesterol 44 MG/DL (40-60) Cholesterol/HDL Ratio 2.3 (3.3-4.4) L White Blood Count 8.1 K/UL (4.8-10.8) Red Blood Count 2.28 M/UL (4.70-6.10) L Hemoglobin 7.3 G/DL (14.2-18.0) L Hematocrit 23.5 % (42.0-52.0) L Mean Corpuscular Volume 103 FL (80-99) H Mean Corpuscular Hemoglobin 32.1 PG (27.0-31.0) H Mean Corpuscular Hemoglobin Concent 31.2 G/DL (32.0-36.0) L Red Cell Distribution Width 12.3 % (11.6-14.8) Platelet Count 263 K/UL (150-450) Mean Platelet Volume 5.1 FL (6.5-10.1) L Neutrophils (%) (Auto) % (45.0-75.0) Lymphocytes (%) (Auto) % (20.0-45.0) Monocytes (%) (Auto) % (1.0-10.0) Eosinophils (%) (Auto) % (0.0-3.0) Basophils (%) (Auto) % (0.0-2.0) Differential Total Cells Counted 100 Neutrophils % (Manual) 68 % (45-75) Lymphocytes % (Manual) 25 % (20-45) Monocytes % (Manual) 3 % (1-10) Eosinophils % (Manual) 4 % (0-3) H Basophils % (Manual) 0 % (0-2) Band Neutrophils 0 % (0-8) Platelet Estimate Adequate Platelet Morphology Normal Hypochromasia 1+ Macrocytosis 1+ Sodium Level 139 MMOL/L (136-145) Potassium Level 3.8 MMOL/L (3.5-5.1) Chloride Level 103 MMOL/L (98-107) Carbon Dioxide Level 28 MMOL/L (21-32) Anion Gap 8 mmol/L (5-15) Blood Urea Nitrogen 31 mg/dL (7-18) H Creatinine 5.1 MG/DL (0.55-1.30) H Estimat Glomerular Filtration Rate 13.8 mL/min (>60) Glucose Level 189 MG/DL (74-106) H Calcium Level 7.7 MG/DL (8.5-10.1) L Magnesium Level 1.7 MG/DL (1.8-2.4) L Total Bilirubin 0.2 MG/DL (0.2-1.0) Direct Bilirubin < 0.1 MG/DL (0.0-0.3) Aspartate Amino Transf (AST/SGOT) 21 U/L (15-37) Alanine Aminotransferase (ALT/SGPT) 20 U/L (12-78) Alkaline Phosphatase 66 U/L (46-116) Total Protein 6.4 G/DL (6.4-8.2) Albumin 1.9 G/DL (3.4-5.0) L Test 03/13/20 05:15 03/13/20 11:32 POC Whole Blood Glucose 174 MG/DL (74-106) H 181 MG/DL (74-106) H Intake and Output 03/12/20 03/13/20 19:00 07:00 Intake Total 600 ml 200 ml Balance 600 ml 200 ml Intake Oral 600 ml 200 ml # Voids 2 # Bowel Movements 2 1 Objective PHYSICAL EXAMINATION: GENERAL: Patient is awake, responsive. No acute distress. HEAD AND NECK: Pupils are reactive to light. Extraocular movements intact. Neck was supple. No JVD. LUNGS: Good air entry. No wheezing or rales. Decreased air in bases. HEART: S1, S2. Distant heart sounds. No murmur or gallop. Patient's right chest wall has PermCath. No sign of infection. No discharges. ABDOMEN: Soft, nondistended, nontender. Mildly obese. EXTREMITIES: No cyanosis, clubbing, or edema. Patient was noted to have decreased pulses in the lower extremities as well as patient has venous stasis and wrinkled skin. NEUROLOGIC: Cranial nerves II through to XII grossly intact. Patient is moving all extremities. Gait was not assessed due to patient's status. RECTAL/GENITOURINARY: Refused and deferred. PSYCHIATRIC: Mood and affect is intact. Assessment/Plan Assessment/Plan ASSESSMENT: 1. End-stage renal disease, on hemodialysis. 2. Fluid overload due to missed dialysis. 3. Diabetes type 2. 4. Hypertension. 5. Anemia of chronic kidney disease. PLAN: 1. Admit patient to medical floor. 2. Dr. Kevyn Vásquez = nephrology consultation; hemodialysis 03/12/20 3. Code status is Full code. 4. DVT prophylaxis=heparin subcutaneous. 5. IV iron and epogen per nephrology Ted Worthington MD Mar 13, 2020 13:22
--- NOTE | 2020-03-13 14:26 | Pulmonology Progress Note ---
Subjective ROS Limited/Unobtainable: No Constitutional: Reports: no symptoms HEENT: Repors: no symptoms Allergies: Coded Allergies: No Known Allergies (Unverified , 03/08/20) Objective Last 24 Hour Vital Signs Date Time Temp Pulse Resp B/P (MAP) Pulse Ox O2 Delivery O2 Flow Rate FiO2 03/13/20 12:00 97.8 90 19 150/89 (109) 98 03/13/20 09:00 Room Air 03/13/20 08:30 84 142/79 03/13/20 08:29 142/79 03/13/20 08:00 98.7 84 18 142/79 (100) 98 03/13/20 04:00 98.8 86 18 141/81 (101) 97 03/12/20 21:00 Room Air 03/12/20 20:00 99.4 89 20 140/81 (100) 99 03/12/20 16:00 98.4 83 16 128/70 (89) 98 Intake and Output 03/12/20 03/13/20 19:00 07:00 Intake Total 600 ml 200 ml Balance 600 ml 200 ml Intake Oral 600 ml 200 ml # Voids 2 # Bowel Movements 2 1 General Appearance: WD/WN HEENT: normocephalic, anicteric, mucous membranes moist Respiratory: chest wall non-tender, lungs clear Cardiovascular: normal peripheral pulses, normal rate Abdomen: normal bowel sounds, soft, non tender Extremities: no clubbing Skin: no rash, no lesions Neurologic: alert - confused, responsive Musculoskeletal: normal muscle bulk Laboratory Tests 03/12/20 16:27: POC Whole Blood Glucose 195H 03/12/20 21:00: POC Whole Blood Glucose 258H 03/13/20 05:00: Phosphorus Level 2.8, Triglycerides Level 60, Cholesterol Level 102, LDL Cholesterol 44, HDL Cholesterol 44, Cholesterol/HDL Ratio 2.3L 03/13/20 05:10: Phosphorus Level 2.6, White Blood Count 8.1, Red Blood Count 2.28L, Hemoglobin 7.3L, Hematocrit 23.5L, Mean Corpuscular Volume 103H, Mean Corpuscular Hemoglobin 32.1H, Mean Corpuscular Hemoglobin Concent 31.2L, Red Cell Distribution Width 12.3, Platelet Count 263, Mean Platelet Volume 5.1L, Neutrophils (%) (Auto) , Lymphocytes (%) (Auto) , Monocytes (%) (Auto) , Eosinophils (%) (Auto) , Basophils (%) (Auto) , Differential Total Cells Counted 100, Neutrophils % (Manual) 68, Lymphocytes % (Manual) 25, Monocytes % ( Manual) 3, Eosinophils % (Manual) 4H, Basophils % (Manual) 0, Band Neutrophils 0 , Platelet Estimate Adequate, Platelet Morphology Normal, Hypochromasia 1+, Macrocytosis 1+, Sodium Level 139, Potassium Level 3.8, Chloride Level 103, Carbon Dioxide Level 28, Anion Gap 8, Blood Urea Nitrogen 31H, Creatinine 5.1H, Estimat Glomerular Filtration Rate 13.8, Glucose Level 189H, Calcium Level 7.7L , Magnesium Level 1.7L, Total Bilirubin 0.2, Direct Bilirubin < 0.1, Aspartate Amino Transf (AST/SGOT) 21, Alanine Aminotransferase (ALT/SGPT) 20, Alkaline Phosphatase 66, Total Protein 6.4, Albumin 1.9L 03/13/20 05:15: POC Whole Blood Glucose 174H 03/13/20 11:32: POC Whole Blood Glucose 181H Current Medications Medications (Trade) Dose Ordered Sig/Analilia Route PRN Reason Start Time Stop Time Status Last Admin Dose Admin Amlodipine Besylate (Norvasc) 10 mg DAILY ORAL 03/09/20 09:00 04/08/20 08:59 03/13/20 08:30 Artificial Tears (Akwa-Tears) 1 drop THREE TIMES A DAY BOTH EYES 03/09/20 09:00 04/08/20 08:59 03/13/20 13:40 Aspirin (ASA) 81 mg DAILY ORAL 03/09/20 09:00 04/23/20 08:59 03/13/20 08:30 Atorvastatin Calcium (Lipitor) 80 mg BEDTIME ORAL 03/09/20 21:00 06/07/20 20:59 03/12/20 21:08 Dextrose (Dextrose 50%) 25 ml Q30M PRN IV Hypoglycemia 03/08/20 23:00 06/06/20 22:59 Dextrose (Dextrose 50%) 50 ml Q30M PRN IV Hypoglycemia 03/08/20 23:00 06/06/20 22:59 Docusate Sodium (Colace) 100 mg THREE TIMES A DAY ORAL 03/09/20 13:00 04/08/20 12:59 03/13/20 13:39 Epoetin Dragan (Epoetin Dragan(ESRD on dialysis)) 10,000 unit FRI-FRI-FRI SUBQ 03/10/20 21:00 06/08/20 20:59 03/12/20 14:02 Folic Acid (Folate) 1 mg DAILY ORAL 03/12/20 10:30 04/11/20 10:29 03/13/20 08:30 Heparin Sodium (Porcine) (Heparin 5000 units/ml) 5,000 units EVERY 8 HOURS SUBQ 03/09/20 06:00 04/23/20 05:59 03/13/20 13:45 Insulin Aspart (NovoLOG) BEFORE MEALS AND HS SUBQ 03/09/20 06:30 06/07/20 06:29 03/13/20 11:35 Iron Sucrose 100 mg/Sodium Chloride 55 ml @ 200 mls/hr BEDTIME IV 03/12/20 21:00 03/16/20 21:17 03/12/20 21:08 Losartan Potassium (Cozaar) 25 mg DAILY ORAL 03/09/20 09:00 04/08/20 08:59 03/13/20 08:29 Pantoprazole (Protonix) 40 mg EVERY 12 HOURS ORAL 03/09/20 21:00 04/08/20 20:59 03/13/20 08:29 Sevelamer Carbonate (Renvela) 800 mg THREE TIMES A DAY ORAL 03/09/20 09:00 06/07/20 08:59 03/13/20 13:39 Tamsulosin HCl (Flomax) 0.4 mg BEDTIME ORAL 03/09/20 21:00 04/08/20 20:59 03/12/20 21:09 Vitamin B Complex/ Vit C/Folic Acid (Nephrovite) 1 tab DAILY ORAL 03/09/20 09:00 04/08/20 08:59 03/13/20 08:30 Assessment/Plan Problems: (1) Fluid overload (2) Missed dialysis (3) Lack of access to transportation (4) ESRF (end stage renal failure) (5) History of hypertension (6) History of diabetes mellitus Assessment/Plan no new complains all reviewed social service consult symptomatic treatment sliding scale diabetic diet monitor Bp dc planning in progress. Gabriel Ceja MD Mar 13, 2020 14:26
[2020-03-13 16:00] VITALS: BP 132/75
[2020-03-13 20:00] VITALS: BP 140/72
[2020-03-13] MEDS: Atorvastatin 80mg tab ORAL SCH (21:05)
[2020-03-13] MEDS: Tamsulosin 0.4mg cap ORAL SCH (21:05)
[2020-03-13] MEDS: Epoetin Alfa-EPBX(ESRD on dialysis)10,000 unit/ml vial SUBQ SCH (21:06)
[2020-03-14 04:00] VITALS: BP 134/71
[2020-03-14] MEDS: Heparin 5000 units/ml inj SUBQ SCH ×3 (06:23→22:00)
[2020-03-14] MEDS: NovoLOG Insulin Flexpen SUBQ SCH ×4 (06:24→20:53)
[2020-03-14 08:00] VITALS: BP 128/76
[2020-03-14] MEDS: Losartan 25mg tab ORAL SCH (09:00)
[2020-03-14] MEDS: Nephrovite tab (Rena-Vite) ORAL SCH (09:08)
[2020-03-14] MEDS: Docusate 100mg cap ORAL SCH ×3 (09:09→18:00)
[2020-03-14] MEDS: Aspirin Baby 81mg ORAL SCH (09:11)
--- NOTE | 2020-03-14 10:36 | CDS Physician Query ---
Clarification is required for compliance, coding accuracy, and to reflect severity of illness for this patient. Dear Dr. Pj Hernandez M.D. Date: 03/14/20 CDI/CDS Name: Lewis Stuart Clinical Documentation Statement: " 69-year-old gentleman with past medical history significant for end-stage renal disease on hemodialysis, history of hypertension, diabetes type 2, anemia of chronic kidney disease " [ H&P Pj Hernandez M.D. 03/08] ASSESSMENT: 1. End-stage renal disease, on hemodialysis. 2. Fluid overload and inability to get dialyze. 3. Diabetes type 2. 4. Hypertension. 5. Anemia of chronic kidney disease. Clinical Finding Show: BMI: 28.9kg/m2 LAB (03/10) : Chem: Albumin 1.9 [3.4-5.0], Calcium 7.7 [ 8.5-10.1] Medication: Dextrose 50ml IV (03/08-06/06) Please select the most appropriate option: [] Protein/Calorie Malnutrition [] Mild [] Moderate [] Severe [] Other [x] Unable to determine [] Not Applicable Present on Admission: [] Yes [] No [] Clinically Undetermined Physician signature Date Please also document in your Progress Notes and/or Discharge Summary and indicate if the condition was present on admission. MTDD
[2020-03-14 12:00] VITALS: BP 136/77
--- NOTE | 2020-03-14 12:13 | Pulmonology Progress Note ---
Subjective ROS Limited/Unobtainable: No Constitutional: Reports: no symptoms HEENT: Repors: no symptoms Respiratory: Reports: no symptoms Cardiovascular: Reports: no symptoms Allergies: Coded Allergies: No Known Allergies (Unverified , 03/08/20) Objective Last 24 Hour Vital Signs Date Time Temp Pulse Resp B/P (MAP) Pulse Ox O2 Delivery O2 Flow Rate FiO2 03/14/20 09:00 Room Air 03/14/20 08:00 98.8 97 18 128/76 (93) 100 03/14/20 04:00 98.0 82 20 134/71 (92) 97 03/13/20 21:00 Room Air 03/13/20 20:00 98.4 77 19 140/72 (94) 97 03/13/20 16:00 98.3 83 18 132/75 (94) 98 Intake and Output 03/13/20 03/14/20 19:00 07:00 Intake Total 400 ml 480 ml Balance 400 ml 480 ml Intake Oral 400 ml 480 ml # Voids 1 2 # Bowel Movements 1 General Appearance: WD/WN HEENT: normocephalic, anicteric, mucous membranes moist Respiratory: chest wall non-tender, lungs clear Cardiovascular: normal peripheral pulses, normal rate Abdomen: normal bowel sounds, soft, non tender Extremities: no clubbing Skin: no rash, no lesions Neurologic: alert - confused, responsive Musculoskeletal: normal muscle bulk Laboratory Tests 03/13/20 16:10: POC Whole Blood Glucose [Pending] 03/13/20 21:05: POC Whole Blood Glucose 215H 03/14/20 06:18: POC Whole Blood Glucose 195H 03/14/20 11:56: POC Whole Blood Glucose 234H Current Medications Medications (Trade) Dose Ordered Sig/Analilia Route PRN Reason Start Time Stop Time Status Last Admin Dose Admin Amlodipine Besylate (Norvasc) 10 mg DAILY ORAL 03/09/20 09:00 04/08/20 08:59 03/13/20 08:30 Artificial Tears (Akwa-Tears) 1 drop THREE TIMES A DAY BOTH EYES 03/09/20 09:00 04/08/20 08:59 03/14/20 09:08 Aspirin (ASA) 81 mg DAILY ORAL 03/09/20 09:00 04/23/20 08:59 03/14/20 09:11 Atorvastatin Calcium (Lipitor) 80 mg BEDTIME ORAL 03/09/20 21:00 06/07/20 20:59 03/13/20 21:05 Dextrose (Dextrose 50%) 25 ml Q30M PRN IV Hypoglycemia 03/08/20 23:00 06/06/20 22:59 Dextrose (Dextrose 50%) 50 ml Q30M PRN IV Hypoglycemia 03/08/20 23:00 06/06/20 22:59 Docusate Sodium (Colace) 100 mg THREE TIMES A DAY ORAL 03/09/20 13:00 04/08/20 12:59 03/14/20 09:09 Epoetin Dragan (Epoetin Dragan(ESRD on dialysis)) 10,000 unit FRI-FRI-FRI SUBQ 03/10/20 21:00 06/08/20 20:59 03/13/20 21:06 Folic Acid (Folate) 1 mg DAILY ORAL 03/12/20 10:30 04/11/20 10:29 03/14/20 09:09 Heparin Sodium (Porcine) (Heparin 5000 units/ml) 5,000 units EVERY 8 HOURS SUBQ 03/09/20 06:00 04/23/20 05:59 03/14/20 06:23 Insulin Aspart (NovoLOG) BEFORE MEALS AND HS SUBQ 03/09/20 06:30 06/07/20 06:29 03/14/20 06:24 Iron Sucrose 100 mg/Sodium Chloride 55 ml @ 200 mls/hr BEDTIME IV 03/12/20 21:00 03/16/20 21:17 03/13/20 21:06 Losartan Potassium (Cozaar) 25 mg DAILY ORAL 03/09/20 09:00 04/08/20 08:59 03/13/20 08:29 Pantoprazole (Protonix) 40 mg EVERY 12 HOURS ORAL 03/09/20 21:00 04/08/20 20:59 03/14/20 09:08 Sevelamer Carbonate (Renvela) 800 mg THREE TIMES A DAY ORAL 03/09/20 09:00 06/07/20 08:59 03/14/20 09:09 Tamsulosin HCl (Flomax) 0.4 mg BEDTIME ORAL 03/09/20 21:00 04/08/20 20:59 03/13/20 21:05 Vitamin B Complex/ Vit C/Folic Acid (Nephrovite) 1 tab DAILY ORAL 03/09/20 09:00 04/08/20 08:59 03/14/20 09:08 Assessment/Plan Problems: (1) Fluid overload (2) Missed dialysis (3) Lack of access to transportation (4) ESRF (end stage renal failure) (5) History of hypertension (6) History of diabetes mellitus Assessment/Plan Hem is lower today. prbdc times one today no new complains all reviewed social service consult symptomatic treatment sliding scale diabetic diet monitor Bp dc planning in progress. Gabriel Ceja MD Mar 14, 2020 12:13
[2020-03-14] MEDS ORDERED: RETACRIT10000 UNIT SUBQ (12:17)
[2020-03-14] MEDS ORDERED: FOLIC ACID1 MG ORAL (12:17)
[2020-03-14] MEDS ORDERED: NOVOLOG100 UNITS1 SUBQ (12:17)
[2020-03-14] MEDS ORDERED: LOSARTAN POTASS25 MG ORAL (12:17)
[2020-03-14] MEDS ORDERED: ASPIRIN81 MG ORAL (12:17)
[2020-03-14] MEDS ORDERED: NEPHROVITE1 TAB ORAL (12:17)
[2020-03-14] MEDS ORDERED: FLOMAX0.4 MG ORAL (12:17)
--- NOTE | 2020-03-14 12:41 | Nephrology Progress Note ---
Assessment/Plan Problem List: (1) ESRD (end stage renal disease) on dialysis (2) Missed dialysis (3) History of hypertension (4) Fluid overload (5) Anemia in chronic kidney disease (CKD) (6) History of diabetes mellitus Assessment End-stage renal disease Anemia of chronic kidney disease Diabetes mellitus Volume overload Plan March 14: Due for dialysis today. Okay to discharge after dialysis. No labs drawn today. Blood pressure stable. March 13: Dialyzed yesterday. Lab reviewed. Blood pressure stable. Due for dialysis tomorrow. March 12: Due for dialysis today. IV iron ordered. Labs reviewed. Blood pressure stable. March 11: Hemodialysis again tomorrow. Patient anemic, iron panel ordered. Patient on Epogen and iron. Continue per consultants. March 10: Hemodialysis today, since dialysis was not done yesterday due to mechanical reasons with the dialysis vendor. Discussed with RN. Today's lab pending will be drawn prior to dialysis by dialysis nurse. Keep the blood pressure and blood sugar in check Flomax nightly Parameters for blood pressure medications Epogen subcu for anemia Per orders Subjective ROS Limited/Unobtainable: No Objective Objective Last 24 Hour Vital Signs Date Time Temp Pulse Resp B/P (MAP) Pulse Ox O2 Delivery O2 Flow Rate FiO2 03/14/20 09:00 Room Air 03/14/20 08:00 98.8 97 18 128/76 (93) 100 03/14/20 04:00 98.0 82 20 134/71 (92) 97 03/13/20 21:00 Room Air 03/13/20 20:00 98.4 77 19 140/72 (94) 97 03/13/20 16:00 98.3 83 18 132/75 (94) 98 Intake and Output 03/13/20 03/14/20 19:00 07:00 Intake Total 400 ml 480 ml Balance 400 ml 480 ml Intake Oral 400 ml 480 ml # Voids 1 2 # Bowel Movements 1 Current Medications Medications (Trade) Dose Ordered Sig/Analilia Route PRN Reason Start Time Stop Time Status Last Admin Dose Admin Amlodipine Besylate (Norvasc) 10 mg DAILY ORAL 03/09/20 09:00 04/08/20 08:59 03/13/20 08:30 Artificial Tears (Akwa-Tears) 1 drop THREE TIMES A DAY BOTH EYES 03/09/20 09:00 04/08/20 08:59 03/14/20 09:08 Aspirin (ASA) 81 mg DAILY ORAL 03/09/20 09:00 04/23/20 08:59 03/14/20 09:11 Atorvastatin Calcium (Lipitor) 80 mg BEDTIME ORAL 03/09/20 21:00 06/07/20 20:59 03/13/20 21:05 Dextrose (Dextrose 50%) 25 ml Q30M PRN IV Hypoglycemia 03/08/20 23:00 06/06/20 22:59 Dextrose (Dextrose 50%) 50 ml Q30M PRN IV Hypoglycemia 03/08/20 23:00 06/06/20 22:59 Docusate Sodium (Colace) 100 mg THREE TIMES A DAY ORAL 03/09/20 13:00 04/08/20 12:59 03/14/20 09:09 Epoetin Dragan (Epoetin Dragan(ESRD on dialysis)) 10,000 unit FRI-FRI-FRI SUBQ 03/10/20 21:00 06/08/20 20:59 03/13/20 21:06 Folic Acid (Folate) 1 mg DAILY ORAL 03/12/20 10:30 04/11/20 10:29 03/14/20 09:09 Heparin Sodium (Porcine) (Heparin 5000 units/ml) 5,000 units EVERY 8 HOURS SUBQ 03/09/20 06:00 04/23/20 05:59 03/14/20 06:23 Insulin Aspart (NovoLOG) BEFORE MEALS AND HS SUBQ 03/09/20 06:30 06/07/20 06:29 03/14/20 12:14 Iron Sucrose 100 mg/Sodium Chloride 55 ml @ 200 mls/hr BEDTIME IV 03/12/20 21:00 03/16/20 21:17 03/13/20 21:06 Losartan Potassium (Cozaar) 25 mg DAILY ORAL 03/09/20 09:00 04/08/20 08:59 03/13/20 08:29 Pantoprazole (Protonix) 40 mg EVERY 12 HOURS ORAL 03/09/20 21:00 04/08/20 20:59 03/14/20 09:08 Sevelamer Carbonate (Renvela) 800 mg THREE TIMES A DAY ORAL 03/09/20 09:00 06/07/20 08:59 03/14/20 09:09 Tamsulosin HCl (Flomax) 0.4 mg BEDTIME ORAL 03/09/20 21:00 04/08/20 20:59 03/13/20 21:05 Vitamin B Complex/ Vit C/Folic Acid (Nephrovite) 1 tab DAILY ORAL 03/09/20 09:00 04/08/20 08:59 03/14/20 09:08 Laboratory Tests 03/13/20 16:10: POC Whole Blood Glucose [Pending] 03/13/20 21:05: POC Whole Blood Glucose 215H 03/14/20 06:18: POC Whole Blood Glucose 195H 03/14/20 11:56: POC Whole Blood Glucose 234H Height (Feet): 5 Height (Inches): 9.00 Weight (Pounds): 196 General Appearance: no apparent distress Cardiovascular: normal rate Respiratory/Chest: lungs clear Abdomen: soft Objective No change Kevny Vásquez MD Mar 14, 2020 12:41
[2020-03-14 16:00] VITALS: BP 159/85
[2020-03-14 17:04] LABS: HEMOGLOBIN 7.1 G/DL (14.2-18.0); MEAN CORPUSCULAR VOLUME 103 FL (80-99); PLATELET COUNT 331 K/UL (150-450); RED BLOOD COUNT 2.23 M/UL (4.70-6.10); RED CELL DISTRIBUTION WIDTH 12.9 % (11.6-14.8); WHITE BLOOD COUNT 8.9 K/UL (4.8-10.8)
[2020-03-14 17:11] LABS: ANION GAP 8 mmol/L (5-15); BLOOD UREA NITROGEN 49 mg/dL (7-18); CALCIUM 7.7 MG/DL (8.5-10.1); CARBON DIOXIDE 28 MMOL/L (21-32); CHLORIDE 99 MMOL/L (98-107); CREATININE 6.9 MG/DL (0.55-1.30); POTASSIUM 3.9 MMOL/L (3.5-5.1); SODIUM 135 MMOL/L (136-145)
--- NOTE | 2020-03-14 19:13 | Internal Med Progress Note ---
Subjective Date of Service: Mar 14, 2020 Physician Name Ted Worthington Attending Physician Pj Hernandez MD Current Medications Medications (Trade) Dose Ordered Sig/Analilia Route PRN Reason Start Time Stop Time Status Last Admin Dose Admin Amlodipine Besylate (Norvasc) 10 mg DAILY ORAL 03/09/20 09:00 04/08/20 08:59 03/13/20 08:30 Artificial Tears (Akwa-Tears) 1 drop THREE TIMES A DAY BOTH EYES 03/09/20 09:00 04/08/20 08:59 03/14/20 13:58 Aspirin (ASA) 81 mg DAILY ORAL 03/09/20 09:00 04/23/20 08:59 03/14/20 09:11 Atorvastatin Calcium (Lipitor) 80 mg BEDTIME ORAL 03/09/20 21:00 06/07/20 20:59 03/13/20 21:05 Dextrose (Dextrose 50%) 25 ml Q30M PRN IV Hypoglycemia 03/08/20 23:00 06/06/20 22:59 Dextrose (Dextrose 50%) 50 ml Q30M PRN IV Hypoglycemia 03/08/20 23:00 06/06/20 22:59 Docusate Sodium (Colace) 100 mg THREE TIMES A DAY ORAL 03/09/20 13:00 04/08/20 12:59 03/14/20 13:57 Epoetin Dragan (Epoetin Dragan(ESRD on dialysis)) 10,000 unit FRI-FRI-FRI SUBQ 03/10/20 21:00 06/08/20 20:59 03/13/20 21:06 Folic Acid (Folate) 1 mg DAILY ORAL 03/12/20 10:30 04/11/20 10:29 03/14/20 09:09 Heparin Sodium (Porcine) (Heparin 5000 units/ml) 5,000 units EVERY 8 HOURS SUBQ 03/09/20 06:00 04/23/20 05:59 03/14/20 06:23 Insulin Aspart (NovoLOG) BEFORE MEALS AND HS SUBQ 03/09/20 06:30 06/07/20 06:29 03/14/20 17:14 Iron Sucrose 100 mg/Sodium Chloride 55 ml @ 200 mls/hr BEDTIME IV 03/12/20 21:00 03/16/20 21:17 03/13/20 21:06 Losartan Potassium (Cozaar) 25 mg DAILY ORAL 03/09/20 09:00 04/08/20 08:59 03/13/20 08:29 Pantoprazole (Protonix) 40 mg EVERY 12 HOURS ORAL 03/09/20 21:00 04/08/20 20:59 03/14/20 09:08 Sevelamer Carbonate (Renvela) 800 mg THREE TIMES A DAY ORAL 03/09/20 09:00 06/07/20 08:59 03/14/20 13:57 Tamsulosin HCl (Flomax) 0.4 mg BEDTIME ORAL 03/09/20 21:00 04/08/20 20:59 03/13/20 21:05 Vitamin B Complex/ Vit C/Folic Acid (Nephrovite) 1 tab DAILY ORAL 03/09/20 09:00 04/08/20 08:59 03/14/20 09:08 Allergies: Coded Allergies: No Known Allergies (Unverified , 03/08/20) ROS Limited/Unobtainable: No Constitutional: Reports: no symptoms HEENT: Reports: no symptoms Cardiovascular: Reports: no symptoms Respiratory: Reports: no symptoms Gastrointestinal/Abdominal: Reports: no symptoms Genitourinary: Reports: no symptoms Neurologic/Psychiatric: Reports: no symptoms Subjective 69 YO M with history of end stage renal failure, admitted for missed dialysis. Cover for Int Nic-Dr Hernandez Objective Last Vital Signs Date Time Temp Pulse Resp B/P (MAP) Pulse Ox O2 Delivery O2 Flow Rate FiO2 03/14/20 16:00 98.5 90 18 159/85 (109) 99 03/14/20 09:00 Room Air Laboratory Tests Test 03/13/20 21:05 03/14/20 06:18 03/14/20 11:56 03/14/20 16:42 POC Whole Blood Glucose 215 MG/DL (74-106) H 195 MG/DL (74-106) H 234 MG/DL (74-106) H 288 MG/DL (74-106) H Test 03/14/20 16:55 White Blood Count 8.9 K/UL (4.8-10.8) Red Blood Count 2.23 M/UL (4.70-6.10) L Hemoglobin 7.1 G/DL (14.2-18.0) L Hematocrit 23.0 % (42.0-52.0) L Mean Corpuscular Volume 103 FL (80-99) H Mean Corpuscular Hemoglobin 31.9 PG (27.0-31.0) H Mean Corpuscular Hemoglobin Concent 31.0 G/DL (32.0-36.0) L Red Cell Distribution Width 12.9 % (11.6-14.8) Platelet Count 331 K/UL (150-450) Mean Platelet Volume 4.5 FL (6.5-10.1) L Neutrophils (%) (Auto) % (45.0-75.0) Lymphocytes (%) (Auto) % (20.0-45.0) Monocytes (%) (Auto) % (1.0-10.0) Eosinophils (%) (Auto) % (0.0-3.0) Basophils (%) (Auto) % (0.0-2.0) Differential Total Cells Counted 100 Neutrophils % (Manual) 69 % (45-75) Lymphocytes % (Manual) 24 % (20-45) Monocytes % (Manual) 4 % (1-10) Eosinophils % (Manual) 2 % (0-3) Basophils % (Manual) 1 % (0-2) Band Neutrophils 0 % (0-8) Platelet Estimate Adequate Platelet Morphology Normal Polychromasia 1+ Hypochromasia 1+ Anisocytosis 1+ Macrocytosis 2+ Sodium Level 135 MMOL/L (136-145) L Potassium Level 3.9 MMOL/L (3.5-5.1) Chloride Level 99 MMOL/L (98-107) Carbon Dioxide Level 28 MMOL/L (21-32) Anion Gap 8 mmol/L (5-15) Blood Urea Nitrogen 49 mg/dL (7-18) H Creatinine 6.9 MG/DL (0.55-1.30) H Estimat Glomerular Filtration Rate 9.7 mL/min (>60) Glucose Level 307 MG/DL (74-106) #H Calcium Level 7.7 MG/DL (8.5-10.1) L Intake and Output 03/13/20 03/14/20 19:00 07:00 Intake Total 400 ml 480 ml Balance 400 ml 480 ml Intake Oral 400 ml 480 ml # Voids 1 2 # Bowel Movements 1 Objective PHYSICAL EXAMINATION: GENERAL: Patient is awake, responsive. No acute distress. HEAD AND NECK: Pupils are reactive to light. Extraocular movements intact. Neck was supple. No JVD. LUNGS: Good air entry. No wheezing or rales. Decreased air in bases. HEART: S1, S2. Distant heart sounds. No murmur or gallop. Patient's right chest wall has PermCath. No sign of infection. No discharges. ABDOMEN: Soft, nondistended, nontender. Mildly obese. EXTREMITIES: No cyanosis, clubbing, or edema. Patient was noted to have decreased pulses in the lower extremities as well as patient has venous stasis and wrinkled skin. NEUROLOGIC: Cranial nerves II through to XII grossly intact. Patient is moving all extremities. Gait was not assessed due to patient's status. RECTAL/GENITOURINARY: Refused and deferred. PSYCHIATRIC: Mood and affect is intact. Assessment/Plan Assessment/Plan ASSESSMENT: 1. End-stage renal disease, on hemodialysis. 2. Fluid overload due to missed dialysis. 3. Diabetes type 2. 4. Hypertension. 5. Anemia of chronic kidney disease. PLAN: 1. Admit patient to medical floor. 2. Dr. Kevyn Vásquez = nephrology consultation; hemodialysis 03/14/20 3. Code status is Full code. 4. DVT prophylaxis=heparin subcutaneous. 5. IV iron and epogen per nephrology Ted Worthington MD Mar 14, 2020 19:13
[2020-03-14 20:00] VITALS: BP 153/89
[2020-03-14] MEDS: Atorvastatin 80mg tab ORAL SCH (20:50)
[2020-03-14] MEDS: Tamsulosin 0.4mg cap ORAL SCH (20:50)
--- NOTE | 2020-03-15 12:16 | Discharge Summary ---
Discharge Summary Discharge Summary _ DATE OF ADMISSION: 03/08/2020 DATE OF DISCHARGE: 03/14/2020 DISCHARGED BY: Dr. Hernandez REASON FOR ADMISSION: 69 years old male with past medical history of end-stage renal disease, on hemodialysis, hypertension, diabetes mellitus type 2, anemia of chronic kidney disease, presented to emergency department from the longterm facility after patient was unable to get hemodialysis. Patient last hemodialysis was 5 days ago . Apparently there was a transportation problem with dialysis center. Patient denies chest pain or shortness of breath. He denied fever, chills, nausea ,vomiting ,any abdominal pain or diarrhea . Patient had no history of COVID exposure or upper respiratory symptoms. Shortly after initial evaluation he was admitted to the hospital with end-stage renal disease, on hemodialysis ,status post missed hemodialysis. Chest x-ray revealed possible right basilar infiltrate versus fluid overload , small left pleural effusion. Laboratory work-up revealed no leukocytosis ,hemoglobin 8, hematocrit 25.5 , platelet count 305. BUN 44, creatinine 6.4, consistent with known history of end-stage renal disease. Glucose 250. Rapid COVID-19 in ER was negative. CONSULTANTS: pulmonary/critical care Dr. Ceja crop production advisor Dr. Vásquez [facility]: Patient admitted to medical surgical floor. Hemodialysis was urgently requested. Hemodialysis provided as per crop production advisor recommendations with close monitoring of volumes, renal parameters and electrolytes. Supplemental oxygen titrated to keep pulse oximetry above 92%. Pulmonary toilet was on board as needed. Pulse oximetry remained stable on room air. SNF medication resumed. Aspirin and statin continued. Blood pressure was managed with the calcium channel beata and angiotensin receptor beata. DVT prophylaxis provided. Blood sugar was managed with sliding scale of insulin. Hemoglobin A1c at goal. Diabetic diet provided. Hemoglobin and hematocrit were closely monitored with goal to keep hemoglobin above 7. Patient started on Epogen. GI prophylaxis provided. Supportive care provided. Another hemodialysis was arranged with reliable transportation to bring patient to and from the longterm facility. Patient was stable for transfer. FINAL DIAGNOSES: Fluid overload secondary to missed hemodialysis , due to lack of transportation End-stage renal disease on hemodialysis Hypertension Diabetes mellitus Anemia of chronic kidney disease DISCHARGE MEDICATIONS: See Medication Reconciliation list. DISCHARGE INSTRUCTIONS: Patient was discharged to the longterm facility. Follow up with medical doctor at the facility. I have been assigned to dictate discharge summary for this account. Rachel Botello NP Mar 15, 2020 12:16
== END 2020-03-14 22:00 | disposition home or self-care (01) | DRG 640 ==
LOC: EMR 19:24 → 3E 19:36 → EDBEDREQ 20:51
PROC: 5A1D70Z Performance of Urinary Filtration, Intermittent, Less than 6 Hours Per Day (ICD-10-PCS; principal; 2020-03-08)
DX: E87.79 Other fluid overload (principal); N18.6 End stage renal disease; I12.0 Hypertensive chronic kidney disease with stage 5 chronic kidney disease or end stage renal disease; E11.22 Type 2 diabetes mellitus with diabetic chronic kidney disease; D63.8 Anemia in other chronic diseases classified elsewhere; Z99.2 Dependence on renal dialysis; Z91.15 Patient's noncompliance with renal dialysis
CPT/HCPCS: 36415; 71045; 80048; 80053; 80061; 80076; 82607; 82728; 82746; 82962; 83036; 83540; 83550; 83735; 84100; 84550; 85007; 85025; 85610; 85730; 93005; 93306; 99285; J1815; U0002